=== PATIENT | male | born 1940 | race African-American/Black ===

== ENCOUNTER 2018-07-23 17:37 | Inpatient (IN) | payer MEDICARE, MEDICAID ==
[~2018-07-23] VITALS: Ht 172.7 cm; Wt 154.2 kg
[~2018-07-23 17:37] MED LIST: CHOL100046 PO; DILT240C52 PO; DUONEB3 ML INH; METF-414 PO; ROSU5TAB PO
[2018-07-23] MEDS ORDERED: METHYLPREDNISOLONE 4MG TABLET PO ONE (19:00)
[2018-07-23] MEDS ORDERED: IPRATROPIUM/ALBUTEROL 0.5-3(2.5)MG/3ML NEB HHN ONE (19:00)
[2018-07-23 19:27] LABS: BASOPHILS % 0.6 % (0.0-2.0); CHLORIDE 100 mEq/L (98-107); EOSINOPHILS % 2.3 % (0.0-5.0); HEMATOCRIT. 35.4 % (42.0-52.0); HEMOGLOBIN. 11.7 g/dL (14.0-18.0); LYMPHOCYTES % 21.1 % (20.0-50.0); MEAN CORPUSCULAR HEMOGLOBIN 27.8 pg (28.0-32.0); MEAN CORPUSCULAR VOLUME 84.2 fL (80.0-94.0); MEAN PLATELET VOLUME 7.7 fl (7.4-10.4); PLATELET 269 x1000/uL (130-400); RED CELL DISTRIBUTION WIDTH 13.7 % (11.6-14.6)
[2018-07-23 19:37] LABS: CLARITY URINE CLEAR (CLEAR); COLOR URINE YELLOW (YELLOW); KETONES URINE NEGATIVE (NEGATIVE); LEUKOCYTE ESTERASE URINE NEGATIVE (NEGATIVE); NITRITE URINE NEGATIVE (NEGATIVE); OCCULT BLOOD URINE 1+ (NEGATIVE); PH URINE 5.5 (4.5-8.0); PROTEIN URINE NEGATIVE (NEGATIVE); SPECIFIC GRAVITY URINE 1.019 (1.005-1.030); UROBILINOGEN URINE 0.2 E.U./dL (0.2-1.0)
[2018-07-23 20:43] LABS: METHADONE URINE SCREEN NEGATIVE (NEGATIVE)
[2018-07-23 20:44] LABS: *AMPHETAMINES SCREEN URINE NEGATIVE (NEGATIVE); *BARBITURATES SCREEN URINE NEGATIVE (NEGATIVE); *BENZODIAZEPINES SCREEN URINE NEGATIVE (NEGATIVE); *COCAINE SCREEN URINE NEGATIVE (NEGATIVE); CANNABINOID URINE SCREEN NEGATIVE (NEGATIVE); OPIATES URINE SCREEN NEGATIVE (NEGATIVE); PHENCYCLIDINE URINE SCREEN NEGATIVE (NEGATIVE)
[2018-07-23 22:07] LABS: BG BASE EXCESS 3.3 mmol/L (-2.0-2.0); BG CARBOXYHEMOGLOBIN 0.7 % (0.5-1.5); BG DEOXYHEMOGLOBIN 5.8 % (0.0-5.0); BG FRACTION INSPIRED OXYGEN 21; BG HCO3 ACT 28.2 mmol/L (22.0-26.0); BG METHEMOGLOBIN 0.2 % (0.0-1.5); BG OXYGEN SATURATION 94.1 % (92.0-98.5); BG OXYHEMOGLOBIN 93.3 % (94.0-97.0); BG PCO2 43.8 mmHg (35.0-45.0); BG PH 7.426 (7.350-7.450); BG PO2 71.2 mmHg (75.0-100.0); BG SAMPLE SITE RIGHT RADIAL; BG VENT MODE ROOM AIR
[2018-07-24] VITALS (13 sets, daily range): BP systolic 132–161; BP diastolic 53–90
[2018-07-24] MEDS ORDERED: METHYLPREDNISOLONE SOD SUCC 40 MG/ML VIAL IV ONE
[2018-07-24] MEDS ORDERED: POTASSIUM CHLORIDE 20MEQ TABLET SR PO SCH (01:30)
[2018-07-24] MEDS ORDERED: DEXTROSE 50% WATER 50ML SYRINGE IV PRN (01:30)
[2018-07-24] MEDS ORDERED: LEVOFLOXACIN 500MG PREMIX 100 ML IV SCH ×2 (01:30→03:00)
[2018-07-24] MEDS ORDERED: CLONIDINE 0.1MG TABLET PO PRN (01:30)
[2018-07-24] MEDS ORDERED: ONDANSETRON HCL 4MG/2ML INJ IV PRN (01:30)
[2018-07-24] MEDS ORDERED: SODIUM CHLORIDE 0.45% 1,000 ML IV SCH (01:30)
[2018-07-24] MEDS ORDERED: ENOXAPARIN 40MG/0.4ML SYR SUBCUT SCH (01:30)
[2018-07-24] MEDS ORDERED: DOCUSATE SODIUM 100MG CAPSULE PO PRN (01:30)
[2018-07-24] MEDS ORDERED: MAX MT (01:45)
[2018-07-24] MEDS ORDERED: DILT-2 MT (01:45)
[2018-07-24] MEDS ORDERED: LOSA100T14 MT (01:45)
[2018-07-24] MEDS ORDERED: ASPI-1159 MT (01:45)
[2018-07-24] MEDS: METHYLPREDNISOLONE SOD SUCC 40 MG/ML VIAL IV SCH ×3 (02:01→17:35)
[2018-07-24] MEDS: IPRATROPIUM/ALBUTEROL 0.5-3(2.5)MG/3ML NEB INH SCH ×5 (04:05→21:57)
[2018-07-24] MEDS: BLOOD SUGAR DIAGNOSTIC STRIP TEST SCH ×4 (07:00→20:53)
[2018-07-24] MEDS: INSULIN LISPRO 100 UNITS/ML SUBCUT SCH ×4 (07:20→20:53)
[2018-07-24] MEDS: ENOXAPARIN 40MG/0.4ML SYR SUBCUT SCH ×2 (09:36→21:06)
[2018-07-24 11:25] LABS: CHLORIDE 100 mEq/L (98-107)
[2018-07-24 11:32] LABS: LDL CHOLESTEROL 96 mg/dL (5-100)
[2018-07-24 11:33] LABS: HDL CHOLESTEROL 52 mg/dL (40-59)
[2018-07-24 11:37] LABS: HEMOGLOBIN 11.6 g/dL (14.0-18.0); MEAN CORPUSCULAR HEMOGLOBIN 28.4 pg (28.0-32.0); MEAN CORPUSCULAR VOLUME 85.6 fL (80.0-94.0); PLATELET 266 x1000/uL (130-400); RED BLOOD CELL COUNT 4.09 mill/uL (4.7-6.1); RED CELL DISTRIBUTION WIDTH 13.6 % (11.6-14.6)
[2018-07-24] MEDS: ACETAMINOPHEN 325MG TABLET PO PRN (15:53)
[2018-07-24] MEDS: AMLODIPINE 5MG TABLET PO SCH (17:35)
[2018-07-24] MEDS ORDERED: INFLUENZA VIRUS VACCINE(AFLURIA) 0.5ML SYR IM ONE (19:30)
[2018-07-25] VITALS (11 sets, daily range): BP systolic 102–159; BP diastolic 41–90
[2018-07-25] MEDS: IPRATROPIUM/ALBUTEROL 0.5-3(2.5)MG/3ML NEB INH SCH ×5 (01:08→16:45)
[2018-07-25] MEDS: METHYLPREDNISOLONE SOD SUCC 40 MG/ML VIAL IV SCH ×3 (02:00→18:00)
[2018-07-25] MEDS: ACETAMINOPHEN 325MG TABLET PO PRN (03:05)
[2018-07-25] MEDS ORDERED: LEVOFLOXACIN 500MG PREMIX 100 ML IV SCH (06:00)
[2018-07-25] MEDS: BLOOD SUGAR DIAGNOSTIC STRIP TEST SCH ×3 (06:43→17:27)
[2018-07-25] MEDS: INSULIN LISPRO 100 UNITS/ML SUBCUT SCH ×3 (07:20→17:20)
[2018-07-25] MEDS: AMLODIPINE 5MG TABLET PO SCH (08:15)
[2018-07-25] MEDS: ENOXAPARIN 40MG/0.4ML SYR SUBCUT SCH (08:16)
[2018-07-25 08:41] LABS: CHLORIDE 99 mEq/L (98-107)
[2018-07-25 08:51] LABS: D-DIMER 0.34 mg/L FEU (<0.50)
[2018-07-25 09:34] LABS: HEMATOCRIT 32.1 % (42.0-52.0); HEMOGLOBIN 10.6 g/dL (14.0-18.0); MEAN CORPUSCULAR HEMOGLOBIN 27.8 pg (28.0-32.0); MEAN CORPUSCULAR VOLUME 84.2 fL (80.0-94.0); PLATELET 276 x1000/uL (130-400); RED BLOOD CELL COUNT 3.81 mill/uL (4.7-6.1); RED CELL DISTRIBUTION WIDTH 13.6 % (11.6-14.6)
== END 2018-07-25 18:54 | disposition home or self-care (01) | DRG 291 ==
LOC: ER 17:37 → 3WST 21:06 → EDBEDREQ 21:12 → EDBEDREQTM 21:12 → ENRESERV 22:34
PROVIDERS: ADMIT Ophthalmology; ATTEND Ophthalmology
DX: I11.0 Hypertensive heart disease with heart failure (principal); J18.9 Pneumonia, unspecified organism; J96.20 Acute and chronic respiratory failure, unspecified whether with hypoxia or hypercapnia; J44.1 Chronic obstructive pulmonary disease with (acute) exacerbation; D68.59 Other primary thrombophilia; E66.2 Morbid (severe) obesity with alveolar hypoventilation; Z68.43 Body mass index [BMI] 50.0-59.9, adult; J44.0 Chronic obstructive pulmonary disease with (acute) lower respiratory infection; R65.10 Systemic inflammatory response syndrome (SIRS) of non-infectious origin without acute organ dysfunction; I50.43 Acute on chronic combined systolic (congestive) and diastolic (congestive) heart failure; D64.9 Anemia, unspecified; Z79.84 Long term (current) use of oral hypoglycemic drugs; Z79.899 Other long term (current) drug therapy; Z82.5 Family history of asthma and other chronic lower respiratory diseases; Z85.46 Personal history of malignant neoplasm of prostate; Z90.49 Acquired absence of other specified parts of digestive tract; Z91.14 Patient's other noncompliance with medication regimen; Z92.3 Personal history of irradiation; R07.89 Other chest pain; Z91.013 Allergy to seafood; Z79.82 Long term (current) use of aspirin
CPT/HCPCS: 36415; 36600; 71045; 74018; 80048; 80061; 80305; 82375; 82805; 82962; 83036; 83880; 84153; 84439; 84443; 84484; 85027; 85379; 87070; 90686; 93005; 93306; 93970; 94640; 97162; 99285; J1650; J1815; J1956; J2920; J7050; J7509; J7620; G0103

== ENCOUNTER 2019-05-03 03:26 | Inpatient (IN) | payer MEDICARE, MEDICAID ==
[~2019-05-03] VITALS: Ht 172.7 cm; Wt 162.9 kg
[2019-05-03] VITALS (8 sets, daily range): BP systolic 125–161; BP diastolic 58–83
[~2019-05-03 03:26] MED LIST changes: +ASPI-1497 MT; +DILT240C96 MT; +LOSA100T32 MT; +MAX MT
[2019-05-03] MEDS ORDERED: METHYLPREDNISOLONE SOD SUCC 125 MG/2 ML VIAL IV STA (03:37)
[2019-05-03] MEDS ORDERED: IPRATROPIUM BROMIDE (0.02%) 0.5MG/2.5ML NEB HHN STA (03:37)
[2019-05-03] MEDS ORDERED: ONDANSETRON HCL 4MG/2ML INJ IV STA (03:37)
[2019-05-03] MEDS ORDERED: MAGNESIUM 2 G PREMIX 50 ML IV ONE (03:45)
[2019-05-03 04:08] LABS: BASOPHILS % 0.5 % (0.0-2.0); EOSINOPHILS % 8.7 % (0.0-5.0); HEMATOCRIT. 34.3 % (42.0-52.0); HEMOGLOBIN. 11.4 g/dL (14.0-18.0); LYMPHOCYTES % 21.5 % (20.0-50.0); MEAN CORPUSCULAR HEMOGLOBIN 27.7 pg (28.0-32.0); MEAN CORPUSCULAR VOLUME 83.6 fL (80.0-94.0); MEAN PLATELET VOLUME 7.8 fl (7.4-10.4); MONOCYTES % 7.3 % (2.0-8.0); PLATELET 244 x1000/uL (130-400); RED BLOOD CELL COUNT 4.11 mill/uL (4.7-6.1); RED CELL DISTRIBUTION WIDTH 14.3 % (11.6-14.6)
[2019-05-03] MEDS: ALBUTEROL (0.083%) 2.5MG/3ML NEB HHN SCH ×2 (04:10→05:13)
[2019-05-03 04:16] LABS: CHLORIDE 98 mEq/L (98-107)
[2019-05-03 04:48] LABS: BG BASE EXCESS 1.2 mmol/L (-2.0-2.0); BG BILEVEL POS AIRWAY PRESSURE 18/5; BG CARBOXYHEMOGLOBIN 0.2 % (0.5-1.5); BG DEOXYHEMOGLOBIN 0.8 % (0.0-5.0); BG FRACTION INSPIRED OXYGEN 50; BG METHEMOGLOBIN 0.2 % (0.0-1.5); BG OXYGEN SATURATION 99.2 % (92.0-98.5); BG OXYHEMOGLOBIN 98.8 % (94.0-97.0); BG PCO2 42.1 mmHg (35.0-45.0); BG PH 7.409 (7.350-7.450); BG PO2 256.1 mmHg (75.0-100.0); BG SAMPLE SITE RIGHT RADIAL; BG TOTAL HEMOGLOBIN 12.4 g/dL (12.0-18.0); BG VENT MODE MASK - BIPAP; BG VENT RATE 16 set
[2019-05-03] MEDS ORDERED: IPRATROPIUM/ALBUTEROL 0.5-3(2.5)MG/3ML NEB HHN ONE (09:45)
[2019-05-03] MEDS ORDERED: DEXTROSE 50% WATER 50ML SYRINGE IV PRN (10:00)
[2019-05-03] MEDS ORDERED: IPRATROPIUM/ALBUTEROL 0.5-3(2.5)MG/3ML NEB HHN SCH (10:00)
[2019-05-03] MEDS: ENOXAPARIN 40MG/0.4ML SYR SUBCUT SCH ×2 (11:26→20:57)
[2019-05-03] MEDS: BLOOD SUGAR DIAGNOSTIC STRIP TEST SCH ×3 (11:29→20:41)
[2019-05-03] MEDS: INSULIN LISPRO 100 UNITS/ML SUBCUT SCH ×3 (12:22→20:57)
[2019-05-03] MEDS: IPRATROPIUM/ALBUTEROL 0.5-3(2.5)MG/3ML NEB HHN PRN (12:42)
[2019-05-03] MEDS: METHYLPREDNISOLONE SOD SUCC 125 MG/2 ML VIAL IV SCH ×2 (14:06→21:02)
[2019-05-03] MEDS: IPRATROPIUM/ALBUTEROL 0.5-3(2.5)MG/3ML NEB HHN SCH ×2 (15:36→20:01)
[2019-05-03] MEDS ORDERED: LORAZEPAM 2MG/ML CPJ IV PRN (16:45)
[2019-05-03] MEDS ORDERED: MORPHINE SULFATE 2 MG/ML CPJ (NOT FOR IM USE) IV PRN (16:45)
[2019-05-03] MEDS ORDERED: LACTULOSE 20G/30ML UDC PO PRN (16:45)
[2019-05-03] MEDS ORDERED: DIPHENHYDRAMINE 50MG/ML VIAL IV PRN (16:45)
[2019-05-03 17:42] LABS: BG BASE EXCESS 4.6 mmol/L (-2.0-2.0); BG CARBOXYHEMOGLOBIN 0.3 % (0.5-1.5); BG DEOXYHEMOGLOBIN 12.3 % (0.0-5.0); BG FRACTION INSPIRED OXYGEN 21; BG HCO3 ACT 30.8 mmol/L (22.0-26.0); BG METHEMOGLOBIN 0.2 % (0.0-1.5); BG OXYGEN SATURATION 87.6 % (92.0-98.5); BG OXYHEMOGLOBIN 87.2 % (94.0-97.0); BG PCO2 52.9 mmHg (35.0-45.0); BG PH 7.383 (7.350-7.450); BG PO2 53.1 mmHg (75.0-100.0); BG SAMPLE SITE RIGHT RADIAL; BG TOTAL HEMOGLOBIN 12.1 g/dL (12.0-18.0); BG VENT MODE ROOM AIR
[2019-05-03] MEDS: BUDESONIDE 0.5MG/2ML NEB HHN SCH (20:01)
[2019-05-03] MEDS: FAMOTIDINE 20MG TABLET PO SCH (20:57)
[2019-05-04] VITALS (15 sets, daily range): BP systolic 103–179; BP diastolic 52–93
[2019-05-04] MEDS: IPRATROPIUM/ALBUTEROL 0.5-3(2.5)MG/3ML NEB HHN PRN (00:21)
[2019-05-04] MEDS: IPRATROPIUM/ALBUTEROL 0.5-3(2.5)MG/3ML NEB HHN SCH ×5 (04:27→19:42)
[2019-05-04] MEDS: ACETAMINOPHEN 325MG TABLET PO PRN (05:00)
[2019-05-04] MEDS: METHYLPREDNISOLONE SOD SUCC 125 MG/2 ML VIAL IV SCH (05:02)
[2019-05-04] MEDS: BLOOD SUGAR DIAGNOSTIC STRIP TEST SCH ×4 (06:30→21:13)
[2019-05-04 06:42] LABS: BASOPHILS % 0.1 % (0.0-2.0); HEMATOCRIT. 32.8 % (42.0-52.0); HEMOGLOBIN. 10.9 g/dL (14.0-18.0); MEAN CORPUSCULAR HEMOGLOBIN 27.7 pg (28.0-32.0); MEAN CORPUSCULAR VOLUME 83.6 fL (80.0-94.0); MEAN PLATELET VOLUME 8.2 fl (7.4-10.4); MONOCYTES % 2.5 % (2.0-8.0); NEUTROPHILS % 88.4 % (40.0-76.0); PLATELET 233 x1000/uL (130-400); RED BLOOD CELL COUNT 3.93 mill/uL (4.7-6.1); RED CELL DISTRIBUTION WIDTH 14.1 % (11.6-14.6)
[2019-05-04] MEDS ORDERED: PANTOPRAZOLE 40MG DR TABLET PO SCH (06:50)
[2019-05-04] MEDS: INSULIN LISPRO 100 UNITS/ML SUBCUT SCH ×4 (07:58→21:31)
[2019-05-04] MEDS: ENOXAPARIN 40MG/0.4ML SYR SUBCUT SCH ×2 (08:00→21:32)
[2019-05-04] MEDS: BUDESONIDE 0.5MG/2ML NEB HHN SCH ×2 (08:54→19:42)
[2019-05-04] MEDS ORDERED: ENOXAPARIN 40MG/0.4ML SYR SUBCUT SCH (11:00)
[2019-05-04] MEDS: METHYLPREDNISOLONE SOD SUCC 40 MG/ML VIAL IV SCH ×2 (14:30→21:32)
[2019-05-04] MEDS: FAMOTIDINE 20MG TABLET PO SCH (21:32)
[2019-05-05] VITALS (12 sets, daily range): BP systolic 128–180; BP diastolic 60–98
[2019-05-05 00:06] LABS: CLARITY URINE CLEAR (CLEAR); COLOR URINE YELLOW (YELLOW); KETONES URINE TRACE (NEGATIVE); LEUKOCYTE ESTERASE URINE NEGATIVE (NEGATIVE); NITRITE URINE NEGATIVE (NEGATIVE); OCCULT BLOOD URINE NEGATIVE (NEGATIVE); PROTEIN URINE NEGATIVE (NEGATIVE); SPECIFIC GRAVITY URINE 1.023 (1.005-1.030); UROBILINOGEN URINE 0.2 E.U./dL (0.2-1.0)
[2019-05-05] MEDS: IPRATROPIUM/ALBUTEROL 0.5-3(2.5)MG/3ML NEB HHN SCH ×6 (00:11→20:52)
[2019-05-05 00:19] LABS: *AMPHETAMINES SCREEN URINE NEGATIVE (NEGATIVE); *BARBITURATES SCREEN URINE NEGATIVE (NEGATIVE); *BENZODIAZEPINES SCREEN URINE NEGATIVE (NEGATIVE); *COCAINE SCREEN URINE NEGATIVE (NEGATIVE); METHADONE URINE SCREEN NEGATIVE (NEGATIVE); OPIATES URINE SCREEN NEGATIVE (NEGATIVE)
[2019-05-05 00:20] LABS: CANNABINOID URINE SCREEN NEGATIVE (NEGATIVE); PHENCYCLIDINE URINE SCREEN NEGATIVE (NEGATIVE)
[2019-05-05] MEDS: METHYLPREDNISOLONE SOD SUCC 40 MG/ML VIAL IV SCH ×3 (05:51→21:50)
[2019-05-05] MEDS: BLOOD SUGAR DIAGNOSTIC STRIP TEST SCH ×4 (06:38→21:30)
[2019-05-05 07:13] LABS: HEMATOCRIT. 32.4 % (42.0-52.0); HEMOGLOBIN. 10.6 g/dL (14.0-18.0); MEAN CORPUSCULAR HEMOGLOBIN 27.6 pg (28.0-32.0); MEAN CORPUSCULAR VOLUME 84.4 fL (80.0-94.0); MEAN PLATELET VOLUME 8.1 fl (7.4-10.4); PLATELET 247 x1000/uL (130-400); RED BLOOD CELL COUNT 3.84 mill/uL (4.7-6.1); RED CELL DISTRIBUTION WIDTH 14.2 % (11.6-14.6)
[2019-05-05] MEDS: BUDESONIDE 0.5MG/2ML NEB HHN SCH ×2 (07:42→20:52)
[2019-05-05] MEDS: INSULIN LISPRO 100 UNITS/ML SUBCUT SCH ×4 (07:44→21:51)
[2019-05-05] MEDS: ENOXAPARIN 40MG/0.4ML SYR SUBCUT SCH ×2 (07:46→21:50)
[2019-05-05] MEDS ORDERED: CEFEPIME HCL 1000MG/VIAL INJ IM SCH (09:30)
[2019-05-05 11:40] LABS: BG BASE EXCESS 3.1 mmol/L (-2.0-2.0); BG CARBOXYHEMOGLOBIN 0.1 % (0.5-1.5); BG DEOXYHEMOGLOBIN 8.9 % (0.0-5.0); BG FRACTION INSPIRED OXYGEN 21; BG HCO3 ACT 28.9 mmol/L (22.0-26.0); BG OXYGEN SATURATION 91.1 % (92.0-98.5); BG PCO2 49.6 mmHg (35.0-45.0); BG PH 7.383 (7.350-7.450); BG PO2 60.1 mmHg (75.0-100.0); BG SAMPLE SITE RIGHT RADIAL; BG TOTAL HEMOGLOBIN 11.9 g/dL (12.0-18.0); BG VENT MODE ROOM AIR
[2019-05-05] MEDS: CEFEPIME 1,000 MG in DEXTROSE 5% WATER 50 ML IV SCH ×2 (12:15→22:05)
[2019-05-05] MEDS ORDERED: SIMETHICONE 80MG TABLET CHEW PO PRN (12:45)
[2019-05-05 13:48] LABS: PLATELET ESTIMATE NORMAL
[2019-05-05] MEDS ORDERED: HYDROCODONE/ACETAMINOPHEN 5/325MG TABLET PO PRN (15:30)
[2019-05-05] MEDS: ACETYLCYSTEINE 100MG/ML 10% VIAL 4ML INH SCH (16:29)
[2019-05-05] MEDS: FAMOTIDINE 20MG TABLET PO SCH (21:49)
[2019-05-06] MEDS: ACETYLCYSTEINE 100MG/ML 10% VIAL 4ML INH SCH ×3 (00:10→16:04)
[2019-05-06] MEDS: IPRATROPIUM/ALBUTEROL 0.5-3(2.5)MG/3ML NEB HHN SCH ×6 (00:11→20:17)
[2019-05-06 00:22] VITALS: BP 138/68
[2019-05-06] MEDS: METHYLPREDNISOLONE SOD SUCC 40 MG/ML VIAL IV SCH ×3 (06:27→21:54)
[2019-05-06] MEDS: BLOOD SUGAR DIAGNOSTIC STRIP TEST SCH ×4 (06:28→21:54)
[2019-05-06] MEDS: INSULIN LISPRO 100 UNITS/ML SUBCUT SCH ×4 (06:31→21:00)
[2019-05-06] MEDS: BUDESONIDE 0.5MG/2ML NEB HHN SCH ×2 (07:55→22:30)
[2019-05-06 08:00] VITALS: BP 156/91
[2019-05-06] MEDS: CEFEPIME 1,000 MG in DEXTROSE 5% WATER 50 ML IV SCH ×2 (09:39→21:54)
[2019-05-06] MEDS: ENOXAPARIN 40MG/0.4ML SYR SUBCUT SCH ×2 (09:39→21:54)
[2019-05-06 12:00] VITALS: BP 136/74
[2019-05-06 12:17] LABS: BG CARBOXYHEMOGLOBIN 0.3 % (0.5-1.5); BG DEOXYHEMOGLOBIN 10.2 % (0.0-5.0); BG FRACTION INSPIRED OXYGEN 28; BG HCO3 ACT 29.2 mmol/L (22.0-26.0); BG METHEMOGLOBIN 0.2 % (0.0-1.5); BG OXYGEN SATURATION 89.7 % (92.0-98.5); BG OXYHEMOGLOBIN 89.3 % (94.0-97.0); BG PCO2 51.6 mmHg (35.0-45.0); BG PH 7.371 (7.350-7.450); BG PO2 59.7 mmHg (75.0-100.0); BG SAMPLE SITE RIGHT RADIAL; BG TOTAL HEMOGLOBIN 12.6 g/dL (12.0-18.0); BG VENT MODE NASAL CANNULA
[2019-05-06 16:00] VITALS: BP 170/73
[2019-05-06 16:47] LABS: HEMATOCRIT. 35.4 % (42.0-52.0); HEMOGLOBIN. 11.6 g/dL (14.0-18.0); MEAN CORPUSCULAR HEMOGLOBIN 27.6 pg (28.0-32.0); MEAN CORPUSCULAR VOLUME 84.5 fL (80.0-94.0); MEAN PLATELET VOLUME 8.1 fl (7.4-10.4); PLATELET 264 x1000/uL (130-400); RED BLOOD CELL COUNT 4.19 mill/uL (4.7-6.1); RED CELL DISTRIBUTION WIDTH 14.6 % (11.6-14.6)
[2019-05-06 16:51] LABS: CHLORIDE 98 mEq/L (98-107)
[2019-05-06 20:00] VITALS: BP 166/95
[2019-05-06 20:42] LABS: PLATELET ESTIMATE NORMAL
[2019-05-06] MEDS: FAMOTIDINE 20MG TABLET PO SCH (21:54)
[2019-05-07] VITALS (7 sets, daily range): BP systolic 139–203; BP diastolic 46–99
[2019-05-07] MEDS: IPRATROPIUM/ALBUTEROL 0.5-3(2.5)MG/3ML NEB HHN SCH ×6 (01:41→20:03)
[2019-05-07] MEDS: METHYLPREDNISOLONE SOD SUCC 40 MG/ML VIAL IV SCH ×2 (05:43→14:13)
[2019-05-07] MEDS: BLOOD SUGAR DIAGNOSTIC STRIP TEST SCH ×4 (05:53→21:25)
[2019-05-07] MEDS: INSULIN LISPRO 100 UNITS/ML SUBCUT SCH ×4 (05:54→21:34)
[2019-05-07 07:24] LABS: HEMOGLOBIN. 10.9 g/dL (14.0-18.0); MEAN CORPUSCULAR HEMOGLOBIN 27.7 pg (28.0-32.0); MEAN CORPUSCULAR VOLUME 83.5 fL (80.0-94.0); MEAN PLATELET VOLUME 8.4 fl (7.4-10.4); PLATELET 257 x1000/uL (130-400); RED BLOOD CELL COUNT 3.95 mill/uL (4.7-6.1); RED CELL DISTRIBUTION WIDTH 13.9 % (11.6-14.6)
[2019-05-07 07:39] LABS: CHLORIDE 98 mEq/L (98-107)
[2019-05-07] MEDS: ENOXAPARIN 40MG/0.4ML SYR SUBCUT SCH ×2 (09:32→21:35)
[2019-05-07] MEDS: CEFEPIME 1,000 MG in DEXTROSE 5% WATER 50 ML IV SCH ×2 (09:32→23:54)
[2019-05-07 09:41] LABS: PLATELET ESTIMATE NORMAL
[2019-05-07] MEDS: HYDRALAZINE 20MG/ML VIAL IV PRN (12:30)
[2019-05-07] MEDS: FAMOTIDINE 20MG TABLET PO SCH (21:35)
[2019-05-08] VITALS (13 sets, daily range): BP systolic 169–220; BP diastolic 66–125
[2019-05-08] MEDS: IPRATROPIUM/ALBUTEROL 0.5-3(2.5)MG/3ML NEB HHN SCH ×6 (00:16→20:31)
[2019-05-08 01:16] LABS: BG BASE EXCESS 2.7 mmol/L (-2.0-2.0); BG BILEVEL POS AIRWAY PRESSURE 15/5; BG CARBOXYHEMOGLOBIN 0.4 % (0.5-1.5); BG DEOXYHEMOGLOBIN 6.8 % (0.0-5.0); BG FRACTION INSPIRED OXYGEN 30; BG HCO3 ACT 28.5 mmol/L (22.0-26.0); BG OXYGEN SATURATION 93.2 % (92.0-98.5); BG OXYHEMOGLOBIN 92.8 % (94.0-97.0); BG PCO2 48.2 mmHg (35.0-45.0); BG PH 7.389 (7.350-7.450); BG PO2 63.7 mmHg (75.0-100.0); BG SAMPLE SITE RIGHT RADIAL; BG TOTAL HEMOGLOBIN 13.3 g/dL (12.0-18.0); BG VENT MODE MASK - BIPAP
[2019-05-08] MEDS ORDERED: METHYLPREDNISOLONE SOD SUCC 40 MG/ML VIAL IV SCH ×2 (01:30→02:30)
[2019-05-08] MEDS: HYDRALAZINE 20MG/ML VIAL IV PRN ×3 (03:30→17:51)
[2019-05-08] MEDS: METHYLPREDNISOLONE SOD SUCC 40 MG/ML VIAL IV SCH ×3 (03:51→17:44)
[2019-05-08] MEDS: BLOOD SUGAR DIAGNOSTIC STRIP TEST SCH ×4 (07:30→20:52)
[2019-05-08] MEDS: INSULIN LISPRO 100 UNITS/ML SUBCUT SCH ×4 (08:00→20:52)
[2019-05-08] MEDS: ENOXAPARIN 40MG/0.4ML SYR SUBCUT SCH ×2 (09:41→20:53)
[2019-05-08 09:46] LABS: HEMATOCRIT. 38.7 % (42.0-52.0); HEMOGLOBIN. 12.6 g/dL (14.0-18.0); MEAN CORPUSCULAR HEMOGLOBIN 27.8 pg (28.0-32.0); MEAN CORPUSCULAR VOLUME 85.4 fL (80.0-94.0); MEAN PLATELET VOLUME 8.5 fl (7.4-10.4); PLATELET 241 x1000/uL (130-400); RED BLOOD CELL COUNT 4.53 mill/uL (4.7-6.1); RED CELL DISTRIBUTION WIDTH 14.4 % (11.6-14.6)
[2019-05-08 09:55] LABS: CHLORIDE 101 mEq/L (98-107)
[2019-05-08] MEDS: CEFEPIME 1,000 MG in DEXTROSE 5% WATER 50 ML IV SCH ×2 (11:23→22:30)
[2019-05-08 12:07] LABS: PLATELET ESTIMATE NORMAL
[2019-05-08] MEDS: SODIUM CHLORIDE 0.9% 1,000 ML IV SCH (12:37)
[2019-05-08 17:58] LABS: BG BASE EXCESS 2.9 mmol/L (-2.0-2.0); BG BILEVEL POS AIRWAY PRESSURE 15/5; BG CARBOXYHEMOGLOBIN 0.2 % (0.5-1.5); BG DEOXYHEMOGLOBIN 2.4 % (0.0-5.0); BG FRACTION INSPIRED OXYGEN 35; BG HCO3 ACT 27.6 mmol/L (22.0-26.0); BG METHEMOGLOBIN 0.1 % (0.0-1.5); BG OXYGEN SATURATION 97.6 % (92.0-98.5); BG OXYHEMOGLOBIN 97.3 % (94.0-97.0); BG PCO2 42.8 mmHg (35.0-45.0); BG PH 7.428 (7.350-7.450); BG PO2 103.5 mmHg (75.0-100.0); BG SAMPLE SITE RIGHT RADIAL; BG TOTAL HEMOGLOBIN 13.4 g/dL (12.0-18.0); BG VENT MODE MASK - BIPAP
[2019-05-08] MEDS ORDERED: VANCOMYCIN 2,000 MG in DEXT 5% WATER 500 ML IV SCH ×2 (18:00→20:00)
[2019-05-08] MEDS: BUDESONIDE 0.5MG/2ML NEB HHN SCH (20:32)
[2019-05-08] MEDS: FAMOTIDINE 20MG TABLET PO SCH (20:52)
[2019-05-08] MEDS ORDERED: MEDICATION NOT ON FORMULARY EA (Rosuvastatin Calcium (Crestor) 1 TAB) PO SCH (23:45)
[2019-05-09] VITALS (12 sets, daily range): BP systolic 150–196; BP diastolic 66–101
[2019-05-09] MEDS: IPRATROPIUM/ALBUTEROL 0.5-3(2.5)MG/3ML NEB HHN SCH ×6 (00:11→20:36)
[2019-05-09] MEDS: METHYLPREDNISOLONE SOD SUCC 40 MG/ML VIAL IV SCH ×4 (00:23→17:05)
[2019-05-09] MEDS: LOSARTAN POTASSIUM 100 MG TABLET PO SCH ×2 (00:24→09:15)
[2019-05-09] MEDS: ACETAMINOPHEN 325MG TABLET PO PRN (00:24)
[2019-05-09] MEDS: HYDRALAZINE 20MG/ML VIAL IV PRN ×2 (05:41→11:26)
[2019-05-09 07:32] LABS: HEMATOCRIT. 35.5 % (42.0-52.0); HEMOGLOBIN. 11.7 g/dL (14.0-18.0); MEAN CORPUSCULAR HEMOGLOBIN 27.8 pg (28.0-32.0); MEAN CORPUSCULAR VOLUME 84.6 fL (80.0-94.0); MEAN PLATELET VOLUME 8.2 fl (7.4-10.4); PLATELET 250 x1000/uL (130-400); RED CELL DISTRIBUTION WIDTH 14.4 % (11.6-14.6)
[2019-05-09] MEDS: BUDESONIDE 0.5MG/2ML NEB HHN SCH ×2 (07:52→20:38)
[2019-05-09] MEDS: INSULIN LISPRO 100 UNITS/ML SUBCUT SCH ×4 (08:00→21:00)
[2019-05-09] MEDS: BLOOD SUGAR DIAGNOSTIC STRIP TEST SCH ×4 (08:26→21:29)
[2019-05-09 08:33] LABS: CHLORIDE 99 mEq/L (98-107)
[2019-05-09] MEDS: SODIUM CHLORIDE 0.9% 1,000 ML IV SCH (09:15)
[2019-05-09] MEDS: ENOXAPARIN 40MG/0.4ML SYR SUBCUT SCH ×2 (09:15→21:36)
[2019-05-09] MEDS: VANCOMYCIN 1 G PREMIX 200 ML IV SCH ×2 (09:58→20:00)
[2019-05-09] MEDS: CEFEPIME 1,000 MG in DEXTROSE 5% WATER 50 ML IV SCH ×2 (11:26→22:29)
[2019-05-09] MEDS ORDERED: OMEP40CA12 MT (15:05)
[2019-05-09] MEDS ORDERED: GABA-531 MT (15:05)
[2019-05-09] MEDS ORDERED: BICA50TA7 MT (15:05)
[2019-05-09 16:11] LABS: PLATELET ESTIMATE NORMAL
[2019-05-09] MEDS: GABAPENTIN 300MG CAPSULE PO SCH (17:00)
[2019-05-09] MEDS: DILTIAZEM HCL 120MG CAPSULE CD 24HR PO SCH (18:32)
[2019-05-09] MEDS: BICALUTAMIDE 50 MG TABLET PO SCH (18:33)
[2019-05-09] MEDS ORDERED: ATORVASTATIN CALCIUM 20MG TABLET PO SCH (21:00)
[2019-05-10] VITALS (12 sets, daily range): BP systolic 121–160; BP diastolic 53–95
[2019-05-10] MEDS: IPRATROPIUM/ALBUTEROL 0.5-3(2.5)MG/3ML NEB HHN SCH ×6 (00:35→20:55)
[2019-05-10] MEDS: GABAPENTIN 300MG CAPSULE PO SCH ×3 (00:37→17:17)
[2019-05-10] MEDS: METHYLPREDNISOLONE SOD SUCC 40 MG/ML VIAL IV SCH ×3 (00:37→12:03)
[2019-05-10] MEDS: SODIUM CHLORIDE 0.9% 1,000 ML IV SCH (04:05)
[2019-05-10] MEDS ORDERED: OMEPRAZOLE 20MG CAPSULE EXTENDED RELEASE PO SCH (07:30)
[2019-05-10] MEDS: INSULIN LISPRO 100 UNITS/ML SUBCUT SCH ×3 (08:00→17:18)
[2019-05-10] MEDS: BLOOD SUGAR DIAGNOSTIC STRIP TEST SCH ×3 (08:04→16:51)
[2019-05-10] MEDS: BUDESONIDE 0.5MG/2ML NEB HHN SCH (08:08)
[2019-05-10] MEDS: BICALUTAMIDE 50 MG TABLET PO SCH (08:36)
[2019-05-10] MEDS: DILTIAZEM HCL 120MG CAPSULE CD 24HR PO SCH (08:36)
[2019-05-10] MEDS: LOSARTAN POTASSIUM 100 MG TABLET PO SCH (08:36)
[2019-05-10] MEDS: ENOXAPARIN 40MG/0.4ML SYR SUBCUT SCH (08:37)
[2019-05-10] MEDS: VANCOMYCIN 1 G PREMIX 200 ML IV SCH (08:37)
[2019-05-10] MEDS: CEFEPIME 1,000 MG in DEXTROSE 5% WATER 50 ML IV SCH (10:40)
[2019-05-10 12:09] LABS: HEMATOCRIT. 35.5 % (42.0-52.0); HEMOGLOBIN. 11.6 g/dL (14.0-18.0); MEAN CORPUSCULAR HEMOGLOBIN 27.4 pg (28.0-32.0); MEAN CORPUSCULAR VOLUME 83.8 fL (80.0-94.0); PLATELET 237 x1000/uL (130-400); RED BLOOD CELL COUNT 4.23 mill/uL (4.7-6.1); RED CELL DISTRIBUTION WIDTH 14.5 % (11.6-14.6)
[2019-05-10 12:58] LABS: CHLORIDE 100 mEq/L (98-107)
[2019-05-10] MEDS ORDERED: METHYLPREDNISOLONE SOD SUCC 125 MG/2 ML VIAL IV SCH ×2 (17:21→18:00)
[2019-05-10 20:23] LABS: PLATELET ESTIMATE NORMAL
== END 2019-05-10 21:50 | DRG 189 ==
LOC: ER 03:26 → 3WST 05:22 → EDBEDREQSVC 05:24 → EDBEDREQ 05:24 → EDBEDREQTM 05:24 → ENRESERV 07:36 → 8WST 05-06 00:53 → 5EST 05-08 03:20
PROVIDERS: ADMIT Ophthalmology; ATTEND Ophthalmology
PROC: 5A09357 Assistance with Respiratory Ventilation, Less than 24 Consecutive Hours, Continuous Positive Airway Pressure (ICD-10-PCS; principal; 2019-05-03)
PROC: 5A09357 Assistance with Respiratory Ventilation, Less than 24 Consecutive Hours, Continuous Positive Airway Pressure (ICD-10-PCS; 2019-05-04)
PROC: 5A09357 Assistance with Respiratory Ventilation, Less than 24 Consecutive Hours, Continuous Positive Airway Pressure (ICD-10-PCS; 2019-05-05)
PROC: 5A09357 Assistance with Respiratory Ventilation, Less than 24 Consecutive Hours, Continuous Positive Airway Pressure (ICD-10-PCS; 2019-05-06)
PROC: 5A09357 Assistance with Respiratory Ventilation, Less than 24 Consecutive Hours, Continuous Positive Airway Pressure (ICD-10-PCS; 2019-05-07)
PROC: 5A09357 Assistance with Respiratory Ventilation, Less than 24 Consecutive Hours, Continuous Positive Airway Pressure (ICD-10-PCS; 2019-05-08)
PROC: 5A09357 Assistance with Respiratory Ventilation, Less than 24 Consecutive Hours, Continuous Positive Airway Pressure (ICD-10-PCS; 2019-05-09)
DX: J96.21 Acute and chronic respiratory failure with hypoxia (principal); J44.1 Chronic obstructive pulmonary disease with (acute) exacerbation; E66.2 Morbid (severe) obesity with alveolar hypoventilation; Z68.43 Body mass index [BMI] 50.0-59.9, adult; C61 Malignant neoplasm of prostate; I12.9 Hypertensive chronic kidney disease with stage 1 through stage 4 chronic kidney disease, or unspecified chronic kidney disease; E11.65 Type 2 diabetes mellitus with hyperglycemia; D64.9 Anemia, unspecified; E11.22 Type 2 diabetes mellitus with diabetic chronic kidney disease; N18.9 Chronic kidney disease, unspecified; Z79.899 Other long term (current) drug therapy; Z91.013 Allergy to seafood; Z79.82 Long term (current) use of aspirin; Z82.5 Family history of asthma and other chronic lower respiratory diseases; Z85.46 Personal history of malignant neoplasm of prostate
CPT/HCPCS: 36415; 36600; 71045; 71250; 80048; 80053; 80305; 81003; 82375; 82805; 82962; 83036; 83605; 83880; 84145; 84153; 84484; 85025; 87070; 87804; 93005; 93306; 93970; 94640; 94660; 97110; 97162; 99291; C1893; J0360; J0692; J1650; J1815; J2060; J2405; J2920; J2930; J3370; J3475; J7030; J7040; J7060; J7608; J7611; J7620; J7626; G0103

== ENCOUNTER 2019-05-20 12:24 | Inpatient (IN) | payer MEDICARE, MEDICAID ==
[~2019-05-20] VITALS: Ht 172.7 cm; Wt 154.7 kg
[2019-05-20 14:25] LABS: BASOPHILS % 0.3 % (0.0-2.0); EOSINOPHILS % 1.8 % (0.0-5.0); HEMATOCRIT. 33.9 % (42.0-52.0); HEMOGLOBIN. 11.2 g/dL (14.0-18.0); LYMPHOCYTES % 9.6 % (20.0-50.0); MEAN CORPUSCULAR HEMOGLOBIN 27.9 pg (28.0-32.0); MEAN CORPUSCULAR VOLUME 84.1 fL (80.0-94.0); MEAN PLATELET VOLUME 7.9 fl (7.4-10.4); MONOCYTES % 6.8 % (2.0-8.0); NEUTROPHILS % 81.5 % (40.0-76.0); PLATELET 154 x1000/uL (130-400); RED BLOOD CELL COUNT 4.03 mill/uL (4.7-6.1); RED CELL DISTRIBUTION WIDTH 14.8 % (11.6-14.6)
[2019-05-20 14:34] LABS: CHLORIDE 95 mEq/L (98-107)
[2019-05-20] MEDS ORDERED: METHYLPREDNISOLONE SOD SUCC 125 MG/2 ML VIAL IV NR (14:45)
[2019-05-20] MEDS ORDERED: IPRATROPIUM BROMIDE (0.02%) 0.5MG/2.5ML NEB HHN NR (14:45)
[2019-05-20] MEDS ORDERED: ALBUTEROL (0.083%) 2.5MG/3ML NEB HHN NR (14:45)
[2019-05-20] MEDS ORDERED: ACETAMINOPHEN 325MG TABLET PO ONE (17:15)
[2019-05-20 20:04] VITALS: BP 147/79
[2019-05-20] MEDS ORDERED: IPRATROPIUM/ALBUTEROL 0.5-3(2.5)MG/3ML NEB HHN PRN (20:45)
[2019-05-20 21:00] VITALS: BP 147/79
[2019-05-20] MEDS ORDERED: TEMAZEPAM 15MG CAPSULE PO PRN (21:00)
[2019-05-20] MEDS ORDERED: CEFEPIME HCL 1000MG/VIAL INJ IM SCH (22:30)
[2019-05-21] VITALS: BP 130/59
[2019-05-21] MEDS: IPRATROPIUM/ALBUTEROL 0.5-3(2.5)MG/3ML NEB HHN SCH ×7 (00:28→21:03)
[2019-05-21] MEDS: METHYLPREDNISOLONE SOD SUCC 40 MG/ML VIAL IV SCH ×3 (02:28→17:44)
[2019-05-21 04:00] VITALS: BP 141/69
[2019-05-21] MEDS: GABAPENTIN 100MG CAPSULE PO SCH ×3 (06:24→21:42)
[2019-05-21] MEDS: OMEPRAZOLE 20MG CAPSULE EXTENDED RELEASE PO SCH (06:25)
[2019-05-21 07:01] LABS: HEMATOCRIT. 31.4 % (42.0-52.0); HEMOGLOBIN. 10.6 g/dL (14.0-18.0); MEAN CORPUSCULAR HEMOGLOBIN 28.2 pg (28.0-32.0); MEAN CORPUSCULAR VOLUME 83.6 fL (80.0-94.0); MEAN PLATELET VOLUME 8.3 fl (7.4-10.4); PLATELET 149 x1000/uL (130-400); RED BLOOD CELL COUNT 3.76 mill/uL (4.7-6.1); RED CELL DISTRIBUTION WIDTH 14.6 % (11.6-14.6)
[2019-05-21 07:29] LABS: CHLORIDE 96 mEq/L (98-107)
[2019-05-21 08:00] VITALS: BP 141/68
[2019-05-21] MEDS: DILTIAZEM HCL 120MG CAPSULE CD 24HR PO SCH (09:07)
[2019-05-21] MEDS: ENOXAPARIN 40MG/0.4ML SYR SUBCUT SCH ×2 (09:07→21:43)
[2019-05-21] MEDS: BUDESONIDE 0.5MG/2ML NEB HHN SCH ×2 (09:19→21:00)
[2019-05-21] MEDS: CEFEPIME 1,000 MG in DEXTROSE 5% WATER 50 ML IV SCH ×3 (10:11)
[2019-05-21 12:00] VITALS: BP 121/59
[2019-05-21 12:19] LABS: PLATELET ESTIMATE NORMAL
[2019-05-21] MEDS ORDERED: ACETAMINOPHEN 650MG SUPP PR PRN (14:45)
[2019-05-21] MEDS ORDERED: ACETAMINOPHEN 325MG TABLET PO PRN (14:45)
[2019-05-21] MEDS ORDERED: DIPHENHYDRAMINE 50MG/ML VIAL IV PRN (14:45)
[2019-05-21] MEDS ORDERED: LORAZEPAM 2MG/ML CPJ IV PRN (14:45)
[2019-05-21] MEDS ORDERED: HYDROCODONE/ACETAMINOPHEN 5/325MG TABLET PO PRN (14:45)
[2019-05-21] MEDS ORDERED: CLONIDINE 0.1MG TABLET PO PRN (14:45)
[2019-05-21] MEDS ORDERED: HYDRALAZINE 20MG/ML VIAL IV PRN (14:45)
[2019-05-21] MEDS ORDERED: DEXTROSE 50% WATER 50ML SYRINGE IV PRN (14:45)
[2019-05-21 15:05] LABS: BG BASE EXCESS 2.5 mmol/L (-2.0-2.0); BG CARBOXYHEMOGLOBIN 0.1 % (0.5-1.5); BG DEOXYHEMOGLOBIN 5.9 % (0.0-5.0); BG HCO3 ACT 26.1 mmol/L (22.0-26.0); BG METHEMOGLOBIN 0.1 % (0.0-1.5); BG OXYGEN SATURATION 94.1 % (92.0-98.5); BG OXYHEMOGLOBIN 93.9 % (94.0-97.0); BG PCO2 36.5 mmHg (35.0-45.0); BG PH 7.472 (7.350-7.450); BG PO2 69.5 mmHg (75.0-100.0); BG SAMPLE SITE RIGHT RADIAL; BG VENT MODE ROOM AIR
[2019-05-21] MEDS: SODIUM CHLORIDE 0.9% 1,000 ML IV SCH (15:36)
[2019-05-21 16:00] VITALS: BP 150/62
[2019-05-21] MEDS: BLOOD SUGAR DIAGNOSTIC STRIP TEST SCH ×2 (17:38→21:43)
[2019-05-21] MEDS: METRONIDAZOLE 500MG TABLET PO SCH ×2 (17:44→21:42)
[2019-05-21] MEDS: INSULIN LISPRO 100 UNITS/ML SUBCUT SCH ×2 (17:45→21:54)
[2019-05-21 19:24] LABS: CLARITY URINE CLEAR (CLEAR); COLOR URINE YELLOW (YELLOW); KETONES URINE TRACE (NEGATIVE); LEUKOCYTE ESTERASE URINE NEGATIVE (NEGATIVE); NITRITE URINE NEGATIVE (NEGATIVE); OCCULT BLOOD URINE NEGATIVE (NEGATIVE); PROTEIN URINE TRACE (NEGATIVE); SPECIFIC GRAVITY URINE 1.027 (1.005-1.030); UROBILINOGEN URINE 0.2 E.U./dL (0.2-1.0)
[2019-05-21 19:39] LABS: *AMPHETAMINES SCREEN URINE NEGATIVE (NEGATIVE)
[2019-05-21 19:41] LABS: *BARBITURATES SCREEN URINE NEGATIVE (NEGATIVE); *BENZODIAZEPINES SCREEN URINE NEGATIVE (NEGATIVE); *COCAINE SCREEN URINE NEGATIVE (NEGATIVE); CANNABINOID URINE SCREEN NEGATIVE (NEGATIVE); METHADONE URINE SCREEN NEGATIVE (NEGATIVE); OPIATES URINE SCREEN NEGATIVE (NEGATIVE); PHENCYCLIDINE URINE SCREEN NEGATIVE (NEGATIVE)
[2019-05-21 20:00] VITALS: BP 118/55
[2019-05-21] MEDS ORDERED: POLYVINYL ALCOHOL OPHTH DROPS 15ML BOTHEYE PRN (21:45)
[2019-05-22] VITALS: BP 120/54
[2019-05-22] MEDS: PIPERACILLIN/TAZOBACTAM 3.375 G in DEXT 5% WATER 100 ML IV SCH ×5 (00:09→23:53)
[2019-05-22 00:10] LABS: PROTHROMBIN TIME 9.9 sec (9.6-11.0)
[2019-05-22] MEDS: IPRATROPIUM/ALBUTEROL 0.5-3(2.5)MG/3ML NEB HHN SCH ×6 (00:30→20:30)
[2019-05-22] MEDS: METHYLPREDNISOLONE SOD SUCC 40 MG/ML VIAL IV SCH ×3 (02:56→21:45)
[2019-05-22 04:00] VITALS: BP 126/82
[2019-05-22 05:57] LABS: HEMATOCRIT. 29.3 % (42.0-52.0); HEMOGLOBIN. 9.8 g/dL (14.0-18.0); MEAN CORPUSCULAR VOLUME 83.8 fL (80.0-94.0); MEAN PLATELET VOLUME 8.1 fl (7.4-10.4); PLATELET 137 x1000/uL (130-400); RED BLOOD CELL COUNT 3.49 mill/uL (4.7-6.1); RED CELL DISTRIBUTION WIDTH 14.8 % (11.6-14.6)
[2019-05-22] MEDS: GABAPENTIN 100MG CAPSULE PO SCH ×3 (06:14→21:45)
[2019-05-22] MEDS: METRONIDAZOLE 500MG TABLET PO SCH ×3 (06:14→21:45)
[2019-05-22] MEDS: OMEPRAZOLE 20MG CAPSULE EXTENDED RELEASE PO SCH (06:14)
[2019-05-22] MEDS: INSULIN LISPRO 100 UNITS/ML SUBCUT SCH ×4 (06:23→20:55)
[2019-05-22] MEDS: BLOOD SUGAR DIAGNOSTIC STRIP TEST SCH ×4 (06:27→20:55)
[2019-05-22 08:00] VITALS: BP 152/50
[2019-05-22] MEDS: BUDESONIDE 0.5MG/2ML NEB HHN SCH ×3 (08:09→22:02)
[2019-05-22] MEDS: ENOXAPARIN 40MG/0.4ML SYR SUBCUT SCH ×2 (09:22→21:45)
[2019-05-22] MEDS: DILTIAZEM HCL 120MG CAPSULE CD 24HR PO SCH (09:23)
[2019-05-22] MEDS: SODIUM CHLORIDE 0.9% 1,000 ML IV SCH ×2 (11:00→17:06)
[2019-05-22] MEDS ORDERED: SODIUM CHLORIDE 0.9% 250 ML IV SCH (11:15)
[2019-05-22 12:38] VITALS: BP 133/60
[2019-05-22 16:03] LABS: PLATELET ESTIMATE NORMAL
[2019-05-22 17:47] VITALS: BP 133/54
[2019-05-22 20:00] VITALS: BP 152/69
[2019-05-22] MEDS ORDERED: MAGNESIUM/ALUMINUM HYDROXIDE/SIMETHICONE 30ML UDC PO PRN (21:30)
[2019-05-23] VITALS: BP 136/59
[2019-05-23] MEDS: IPRATROPIUM/ALBUTEROL 0.5-3(2.5)MG/3ML NEB HHN SCH ×5 (00:25→16:34)
[2019-05-23 04:00] VITALS: BP 145/51
[2019-05-23] MEDS: PIPERACILLIN/TAZOBACTAM 3.375 G in DEXT 5% WATER 100 ML IV SCH ×3 (05:48→17:12)
[2019-05-23 05:51] LABS: HEMATOCRIT. 31.4 % (42.0-52.0); HEMOGLOBIN. 10.4 g/dL (14.0-18.0); MEAN CORPUSCULAR VOLUME 84.6 fL (80.0-94.0); MEAN PLATELET VOLUME 8.5 fl (7.4-10.4); PLATELET 130 x1000/uL (130-400); RED BLOOD CELL COUNT 3.71 mill/uL (4.7-6.1)
[2019-05-23] MEDS: GABAPENTIN 100MG CAPSULE PO SCH ×2 (06:24→14:57)
[2019-05-23] MEDS: METRONIDAZOLE 500MG TABLET PO SCH ×2 (06:24→14:59)
[2019-05-23] MEDS: OMEPRAZOLE 20MG CAPSULE EXTENDED RELEASE PO SCH (06:24)
[2019-05-23] MEDS: INSULIN LISPRO 100 UNITS/ML SUBCUT SCH ×3 (06:31→17:30)
[2019-05-23] MEDS: BLOOD SUGAR DIAGNOSTIC STRIP TEST SCH ×3 (06:31→17:12)
[2019-05-23 06:43] LABS: CHLORIDE 98 mEq/L (98-107)
[2019-05-23] MEDS: SODIUM CHLORIDE 0.9% 1,000 ML IV SCH ×2 (07:05→17:05)
[2019-05-23 08:00] VITALS: BP 129/72
[2019-05-23] MEDS: DILTIAZEM HCL 120MG CAPSULE CD 24HR PO SCH (09:05)
[2019-05-23] MEDS: METHYLPREDNISOLONE SOD SUCC 40 MG/ML VIAL IV SCH (09:05)
[2019-05-23] MEDS: ENOXAPARIN 40MG/0.4ML SYR SUBCUT SCH (09:07)
[2019-05-23 12:00] VITALS: BP 126/45
[2019-05-23] MEDS: BUDESONIDE 0.5MG/2ML NEB HHN SCH (12:40)
[2019-05-23 13:42] LABS: PLATELET ESTIMATE NORMAL
[2019-05-23 16:00] VITALS: BP 148/50
[2019-05-23 17:37] VITALS: BP 148/50
== END 2019-05-23 18:50 | disposition home or self-care (01) | DRG 393 ==
LOC: ER 12:24 → 8WST 15:58 → ENRESERV 19:03
PROVIDERS: ADMIT Internal Medicine; ATTEND Internal Medicine
DX: K52.1 Toxic gastroenteritis and colitis (principal); J96.01 Acute respiratory failure with hypoxia; N17.9 Acute kidney failure, unspecified; J44.1 Chronic obstructive pulmonary disease with (acute) exacerbation; K56.7 Ileus, unspecified; E66.2 Morbid (severe) obesity with alveolar hypoventilation; E87.1 Hypo-osmolality and hyponatremia; Z68.43 Body mass index [BMI] 50.0-59.9, adult; T36.95XA Adverse effect of unspecified systemic antibiotic, initial encounter; I10 Essential (primary) hypertension; D64.9 Anemia, unspecified; E11.65 Type 2 diabetes mellitus with hyperglycemia; E86.0 Dehydration; R06.03 Acute respiratory distress; C61 Malignant neoplasm of prostate; Y92.89 Other specified places as the place of occurrence of the external cause; Z82.5 Family history of asthma and other chronic lower respiratory diseases; Z87.891 Personal history of nicotine dependence; Z90.49 Acquired absence of other specified parts of digestive tract; Z91.013 Allergy to seafood; I25.2 Old myocardial infarction; Z80.9 Family history of malignant neoplasm, unspecified
CPT/HCPCS: 36415; 36600; 71045; 74018; 74176; 80048; 80053; 80305; 81003; 82270; 82375; 82805; 82962; 83880; 84145; 84484; 85025; 87015; 87045; 87427; 87449; 89055; 93005; 94644; 96374; 99285; J0692; J1650; J1815; J2060; J2543; J2920; J2930; J7030; J7060; J7611; J7620; J7626

== ENCOUNTER 2019-08-12 12:29 | Emergency (ER) | payer MEDICARE, MEDICAID ==
[~2019-08-12] VITALS: Ht 172.7 cm; Wt 154.0 kg
[2019-08-12] MEDS ORDERED: KETOROLAC 60MG/2ML VIAL IM ONE (15:30)
[2019-08-12] MEDS ORDERED: HYDROCODONE/ACETAMINOPHEN 5/325MG TABLET PO ONE (15:30)
[2019-08-12 17:36] VITALS: BP 155/92
== END 2019-08-12 17:38 | disposition home or self-care (01) ==
LOC: ER 12:29
DX: R51 Headache (principal); J44.9 Chronic obstructive pulmonary disease, unspecified; E11.9 Type 2 diabetes mellitus without complications; I25.2 Old myocardial infarction; I11.0 Hypertensive heart disease with heart failure; I50.9 Heart failure, unspecified; E66.01 Morbid (severe) obesity due to excess calories; Z68.43 Body mass index [BMI] 50.0-59.9, adult; Z91.013 Allergy to seafood
CPT/HCPCS: 70486; 96372; 99284; J1885

== ENCOUNTER 2019-09-27 05:18 | Emergency (ER) | payer MEDICARE, MEDICAID ==
[~2019-09-27] VITALS: Ht 172.7 cm; Wt 143.0 kg
[2019-09-27] MEDS ORDERED: IPRATROPIUM BROMIDE (0.02%) 0.5MG/2.5ML NEB HHN STA (06:24)
[2019-09-27] MEDS ORDERED: METHYLPREDNISOLONE SOD SUCC 125 MG/2 ML VIAL IV STA (06:24)
[2019-09-27] MEDS ORDERED: ALBUTEROL (0.083%) 2.5MG/3ML NEB HHN STA (06:24)
[2019-09-27 06:38] LABS: BASOPHILS % 0.2 % (0.0-2.0); HEMATOCRIT. 30.7 % (42.0-52.0); MEAN CORPUSCULAR HEMOGLOBIN 27.7 pg (28.0-32.0); MEAN CORPUSCULAR VOLUME 84.8 fL (80.0-94.0); MONOCYTES % 3.7 % (2.0-8.0); NEUTROPHILS % 87.1 % (40.0-76.0); PLATELET 220 x1000/uL (130-400); RED BLOOD CELL COUNT 3.63 mill/uL (4.7-6.1); RED CELL DISTRIBUTION WIDTH 14.2 % (11.6-14.6)
[2019-09-27 06:42] LABS: CHLORIDE 100 mEq/L (98-107)
[2019-09-27] MEDS ORDERED: ALBUTEROL 6.7GM HFA INHALER ORI ONE (07:00)
[2019-09-27] MEDS ORDERED: SODIUM CHLORIDE 0.9% 1,000 ML IV ONE (08:00)
[2019-09-27 10:00] VITALS: BP 172/68
== END 2019-09-27 10:49 | disposition home or self-care (01) ==
LOC: ER 05:18 → CANBEDREQ 08:29 → ER 10:49
DX: J44.9 Chronic obstructive pulmonary disease, unspecified (principal); K92.2 Gastrointestinal hemorrhage, unspecified; D64.9 Anemia, unspecified; I10 Essential (primary) hypertension; E11.9 Type 2 diabetes mellitus without complications; Z87.19 Personal history of other diseases of the digestive system; Z98.890 Other specified postprocedural states; Z91.013 Allergy to seafood
CPT/HCPCS: 36415; 71045; 80053; 83880; 84484; 85025; 86850; 86900; 86901; 86920; 93005; 96374; 99285; J2930; J7030; 96375

== ENCOUNTER 2020-10-01 03:43 | Inpatient (IN) | payer MEDICARE, MEDICAID ==
[~2020-10-01] VITALS: Ht 177.8 cm; Wt 173.3 kg
[2020-10-01] MEDS ORDERED: ONDANSETRON HCL 4MG/2ML INJ IV STA (04:11)
[2020-10-01] MEDS ORDERED: MORPHINE SULFATE 4 MG/ML CPJ (NOT FOR IM USE) IV STA (04:11)
[2020-10-01] MEDS ORDERED: SODIUM CHLORIDE 0.9% 1,000 ML IV ONE (04:15)
[2020-10-01 05:09] LABS: BASOPHILS % 0.5 % (0.0-2.0); EOSINOPHILS % 1.3 % (0.0-5.0); HEMOGLOBIN. 11.2 g/dL (14.0-18.0); LYMPHOCYTES % 11.2 % (20.0-50.0); MEAN CORPUSCULAR VOLUME 84.4 fL (80.0-94.0); MEAN PLATELET VOLUME 7.5 fl (7.4-10.4); MONOCYTES % 6.3 % (2.0-8.0); NEUTROPHILS % 80.7 % (40.0-76.0); PLATELET 240 x1000/uL (130-400); RED BLOOD CELL COUNT 4.14 mill/uL (4.7-6.1); RED CELL DISTRIBUTION WIDTH 14.6 % (11.6-14.6)
[2020-10-01 05:09] LABS: CHLORIDE 99 mEq/L (98-107)
[2020-10-01] MEDS ORDERED: IBUPROFEN 600MG TABLET PO ONE (06:30)
[2020-10-01] MEDS ORDERED: IOHEXOL-300 100 ML BOTTLE ONE (07:17)
[2020-10-01] MEDS ORDERED: ONDANSETRON HCL 4MG/2ML INJ IV PRN (08:30)
[2020-10-01] MEDS ORDERED: ACETAMINOPHEN 325MG TABLET PO PRN (08:30)
[2020-10-01] MEDS: IPRATROPIUM/ALBUTEROL 0.5-3(2.5)MG/3ML NEB HHN PRN ×2 (09:56→16:24)
[2020-10-01 10:35] VITALS: BP 114/81
[2020-10-01] MEDS ORDERED: METF-414 MT (11:30)
[2020-10-01] MEDS ORDERED: LEVA15HF6 IH (11:34)
[2020-10-01 12:00] VITALS: BP 94/57
[2020-10-01] MEDS ORDERED: CEFTRIAXONE 1,000 MG in DEXTROSE 5% WATER 50 ML IV SCH (13:00)
[2020-10-01 13:56] VITALS: BP 94/57
[2020-10-01 14:39] LABS: CLARITY URINE CLEAR (CLEAR); COLOR URINE YELLOW (YELLOW); KETONES URINE NEGATIVE (NEGATIVE); LEUKOCYTE ESTERASE URINE NEGATIVE (NEGATIVE); NITRITE URINE NEGATIVE (NEGATIVE); OCCULT BLOOD URINE 1+ (NEGATIVE); PH URINE 5.5 (4.5-8.0); PROTEIN URINE NEGATIVE (NEGATIVE); UROBILINOGEN URINE 0.2 E.U./dL (0.2-1.0)
[2020-10-01 16:00] VITALS: BP 155/66
[2020-10-01 18:27] VITALS: BP 155/66
== END 2020-10-01 19:10 | disposition home or self-care (01) | DRG 155 ==
LOC: ER 03:57 → 5WST 05:49 → ENRESERV 08:05
PROVIDERS: ADMIT Internal Medicine Pulmonary Disease; ATTEND Internal Medicine Pulmonary Disease
DX: K11.5 Sialolithiasis (principal); E87.1 Hypo-osmolality and hyponatremia; Z68.43 Body mass index [BMI] 50.0-59.9, adult; M26.609 Unspecified temporomandibular joint disorder, unspecified side; K11.20 Sialoadenitis, unspecified; E66.01 Morbid (severe) obesity due to excess calories; E11.9 Type 2 diabetes mellitus without complications; J44.9 Chronic obstructive pulmonary disease, unspecified; G47.33 Obstructive sleep apnea (adult) (pediatric); I10 Essential (primary) hypertension; I16.0 Hypertensive urgency; Z71.3 Dietary counseling and surveillance; Z91.013 Allergy to seafood; Z82.5 Family history of asthma and other chronic lower respiratory diseases; K52.9 Noninfective gastroenteritis and colitis, unspecified
CPT/HCPCS: 36415; 70487; 71045; 80053; 81003; 84145; 84484; 85025; 93005; 94640; 99285; J0696; J7030; J7040; J7060; Q9967

== ENCOUNTER 2021-03-09 05:53 | Emergency (ER) | payer MEDICARE, MEDICAID ==
[~2021-03-09] VITALS: Ht 172.7 cm; Wt 172.0 kg
[~2021-03-09 05:53] MED LIST changes: -ASPI-1497 MT; -CHOL100046 PO; -DILT240C52 PO; -DILT240C96 MT; -DUONEB3 ML INH; +LEVA15HF6 IH; -LOSA100T32 MT; -MAX MT; +METF-414 MT; -METF-414 PO; -ROSU5TAB PO
[2021-03-09] MEDS ORDERED: PREDNISONE 20MG TABLET PO STA (06:39)
[2021-03-09] MEDS ORDERED: ALBUTEROL (0.083%) 2.5MG/3ML NEB HHN STA (06:39)
[2021-03-09] MEDS ORDERED: IPRATROPIUM BROMIDE (0.02%) 0.5MG/2.5ML NEB HHN STA (06:39)
[2021-03-09 07:13] LABS: BASOPHILS % 0.8 % (0.0-2.0); EOSINOPHILS % 4.7 % (0.0-5.0); HEMATOCRIT. 32.7 % (42.0-52.0); HEMOGLOBIN. 10.6 g/dL (14.0-18.0); LYMPHOCYTES % 17.9 % (20.0-50.0); MEAN CORPUSCULAR HEMOGLOBIN 27.4 pg (28.0-32.0); MEAN CORPUSCULAR VOLUME 84.1 fL (80.0-94.0); MEAN PLATELET VOLUME 8.7 fl (7.4-10.4); MONOCYTES % 6.3 % (2.0-8.0); NEUTROPHILS % 70.3 % (40.0-76.0); PLATELET 210 x1000/uL (130-400); RED BLOOD CELL COUNT 3.89 mill/uL (4.7-6.1); RED CELL DISTRIBUTION WIDTH 15.3 % (11.6-14.6)
[2021-03-09 07:26] LABS: CHLORIDE 104 mEq/L (98-107)
[2021-03-09] MEDS ORDERED: DOXY100C5 MT (11:23)
[2021-03-09] MEDS ORDERED: P50 MT (11:25)
[2021-03-09 12:20] VITALS: BP 134/51
== END 2021-03-09 12:50 | disposition home or self-care (01) ==
LOC: ER 05:53
DX: J44.1 Chronic obstructive pulmonary disease with (acute) exacerbation (principal); I11.0 Hypertensive heart disease with heart failure; I50.9 Heart failure, unspecified; E11.9 Type 2 diabetes mellitus without complications; Z91.013 Allergy to seafood; Z90.49 Acquired absence of other specified parts of digestive tract
CPT/HCPCS: 36415; 71045; 80048; 83880; 84484; 85025; 93005; 94644; 99285; J7512

== ENCOUNTER 2021-03-31 13:17 | Inpatient (IN) | payer MEDICARE, MEDICAID ==
[~2021-03-31] VITALS: Ht 175.3 cm; Wt 162.4 kg
[~2021-03-31 13:17] MED LIST changes: +DOXY100C5 MT; +P50 MT
[2021-03-31] MEDS ORDERED: ALBUTEROL (0.083%) 2.5MG/3ML NEB HHN STA (13:22)
[2021-03-31] MEDS ORDERED: IPRATROPIUM BROMIDE (0.02%) 0.5MG/2.5ML NEB HHN STA (13:22)
[2021-03-31] MEDS ORDERED: VANCOMYCIN 1 G PREMIX 200 ML IV ONE (13:30)
[2021-03-31] MEDS ORDERED: NITROGLYCERIN OINT 1GM/INCH UDPKT TD ONE (13:30)
[2021-03-31] MEDS ORDERED: PIPERACILLIN/TAZ 3.375G PREMIX 50 ML IV ONE (13:30)
[2021-03-31] MEDS: FUROSEMIDE 40MG/4ML VIAL IV ONE ×2 (13:30→13:42)
[2021-03-31] MEDS ORDERED: LIDOCAINE HCL/PF 1% 2ML VIAL ONE (13:55)
[2021-03-31 13:59] LABS: BASOPHILS % 0.7 % (0.0-2.0); EOSINOPHILS % 1.6 % (0.0-5.0); HEMATOCRIT. 37.2 % (42.0-52.0); HEMOGLOBIN. 11.7 g/dL (14.0-18.0); LYMPHOCYTES % 32.5 % (20.0-50.0); MEAN CORPUSCULAR HEMOGLOBIN 27.2 pg (28.0-32.0); MEAN CORPUSCULAR VOLUME 86.5 fL (80.0-94.0); MEAN PLATELET VOLUME 8.2 fl (7.4-10.4); MONOCYTES % 7.6 % (2.0-8.0); NEUTROPHILS % 57.6 % (40.0-76.0); PLATELET 221 x1000/uL (130-400); RED CELL DISTRIBUTION WIDTH 16.2 % (11.6-14.6)
[2021-03-31 14:02] LABS: CHLORIDE 100 mEq/L (98-107)
[2021-03-31 14:07] LABS: PROTHROMBIN TIME 10.3 sec (9.6-11.0)
[2021-03-31 14:09] LABS: C REACTIVE PROTEIN QUANT 2.2 mg/L (0.0-3.0); ETHANOL BLOOD < 10 mg/dL
[2021-03-31 14:47] LABS: BG BASE EXCESS 2.3 mmol/L (-2.0-2.0); BG CARBOXYHEMOGLOBIN 0.3 % (0.5-1.5); BG DEOXYHEMOGLOBIN 0.6 % (0.0-5.0); BG FRACTION INSPIRED OXYGEN 100; BG HCO3 ACT 26.8 mmol/L (22.0-26.0); BG OXYGEN SATURATION 99.4 % (92.0-98.5); BG OXYHEMOGLOBIN 99.1 % (94.0-97.0); BG PCO2 41.1 mmHg (35.0-45.0); BG PH 7.432 (7.350-7.450); BG PO2 501.9 mmHg (75.0-100.0); BG SAMPLE SITE LEFT RADIAL; BG TOTAL HEMOGLOBIN 12.4 g/dL (12.0-18.0); BG VENT MODE MASK - BIPAP
[2021-03-31] MEDS ORDERED: CLONIDINE 0.1MG TABLET PO PRN (18:30)
[2021-03-31] MEDS ORDERED: ONDANSETRON HCL 4MG/2ML INJ IV PRN (18:30)
[2021-03-31] MEDS ORDERED: ACETAMINOPHEN 325MG TABLET PO PRN (18:30)
[2021-03-31] MEDS ORDERED: DOCUSATE SODIUM 100MG CAPSULE PO PRN (18:30)
[2021-03-31] MEDS ORDERED: POTASSIUM CHLORIDE 20MEQ TABLET SR PO PRN (18:30)
[2021-03-31] MEDS ORDERED: GUAIFENESIN 200MG/10ML SUGAR FREE UDC PO PRN (18:30)
[2021-03-31] MEDS ORDERED: PIPERACILLIN/TAZOBACTAM 3.375GM/50ML PREMIX IV ONE (18:30)
[2021-03-31] MEDS ORDERED: MAGNESIUM/ALUMINUM HYDROXIDE/SIMETHICONE 30ML UDC PO PRN (18:30)
[2021-03-31] MEDS ORDERED: DEXTROSE 50% WATER 50ML SYRINGE IV PRN ×2 (18:45)
[2021-03-31 19:01] VITALS: BP 121/47
[2021-03-31 20:00] VITALS: BP 144/61
[2021-03-31] MEDS: IPRATROPIUM/ALBUTEROL 0.5-3(2.5)MG/3ML NEB HHN PRN (20:16)
[2021-03-31 20:30] VITALS: BP 144/61
[2021-03-31] MEDS: BLOOD SUGAR DIAGNOSTIC STRIP TEST SCH (20:57)
[2021-03-31] MEDS: INSULIN LISPRO 100 UNITS/ML SUBCUT SCH (20:58)
[2021-03-31] MEDS: CEFTRIAXONE 1,000 MG in DEXTROSE 5% WATER 50 ML IV SCH (21:40)
[2021-03-31 22:00] VITALS: BP 153/72
[2021-03-31] MEDS ORDERED: ENOXAPARIN 40MG/0.4ML SYR SUBCUT SCH (22:00)
[2021-03-31] MEDS ORDERED: PIPERACILLIN/TAZOBACTAM 3.375G in DEXT 5% WATER 50ML IV SCH (22:00)
[2021-03-31] MEDS ORDERED: LOSA50TA41 PO (23:57)
[2021-03-31] MEDS ORDERED: ASPI-1497 MT (23:57)
[2021-04-01] VITALS (12 sets, daily range): BP systolic 136–173; BP diastolic 39–81
[2021-04-01] MEDS: IPRATROPIUM/ALBUTEROL 0.5-3(2.5)MG/3ML NEB HHN PRN ×2 (00:30→04:47)
[2021-04-01] MEDS: BLOOD SUGAR DIAGNOSTIC STRIP TEST SCH ×4 (05:58→20:50)
[2021-04-01] MEDS: INSULIN LISPRO 100 UNITS/ML SUBCUT SCH ×4 (05:58→20:50)
[2021-04-01 07:11] LABS: BASOPHILS % 0.5 % (0.0-2.0); EOSINOPHILS % 2.3 % (0.0-5.0); HEMATOCRIT. 32.9 % (42.0-52.0); HEMOGLOBIN. 10.5 g/dL (14.0-18.0); LYMPHOCYTES % 11.2 % (20.0-50.0); MEAN CORPUSCULAR HEMOGLOBIN 27.3 pg (28.0-32.0); MEAN CORPUSCULAR VOLUME 85.4 fL (80.0-94.0); MONOCYTES % 8.2 % (2.0-8.0); NEUTROPHILS % 77.8 % (40.0-76.0); PLATELET 230 x1000/uL (130-400); RED BLOOD CELL COUNT 3.85 mill/uL (4.7-6.1); RED CELL DISTRIBUTION WIDTH 16.6 % (11.6-14.6)
[2021-04-01 07:49] LABS: PHOSPHORUS 3.8 mg/dL (2.5-4.9)
[2021-04-01 07:55] LABS: T4 FREE 1.2 ng/dL (0.76-1.46)
[2021-04-01] MEDS: PANTOPRAZOLE SODIUM 40 MG/VIAL IV SCH (07:58)
[2021-04-01] MEDS: PREDNISONE 5MG TABLET PO SCH (07:58)
[2021-04-01] MEDS ORDERED: FUROSEMIDE 40MG/4ML VIAL IV SCH (09:00)
[2021-04-01 10:46] LABS: BG BASE EXCESS 4.4 mmol/L (-2.0-2.0); BG CARBOXYHEMOGLOBIN 0.3 % (0.5-1.5); BG DEOXYHEMOGLOBIN 1.1 % (0.0-5.0); BG FRACTION INSPIRED OXYGEN 40; BG HCO3 ACT 28.9 mmol/L (22.0-26.0); BG METHEMOGLOBIN 0.3 % (0.0-1.5); BG OXYGEN SATURATION 98.9 % (92.0-98.5); BG OXYHEMOGLOBIN 98.3 % (94.0-97.0); BG PCO2 43.2 mmHg (35.0-45.0); BG PH 7.444 (7.350-7.450); BG PO2 203.9 mmHg (75.0-100.0); BG SAMPLE SITE RIGHT RADIAL; BG TOTAL HEMOGLOBIN 11.9 g/dL (12.0-18.0); BG VENT MODE MASK - BIPAP
[2021-04-01 10:50] LABS: CLARITY URINE CLEAR (CLEAR); COLOR URINE YELLOW (YELLOW); KETONES URINE NEGATIVE (NEGATIVE); LEUKOCYTE ESTERASE URINE NEGATIVE (NEGATIVE); NITRITE URINE NEGATIVE (NEGATIVE); OCCULT BLOOD URINE NEGATIVE (NEGATIVE); PH URINE 5.5 (4.5-8.0); PROTEIN URINE NEGATIVE (NEGATIVE); SPECIFIC GRAVITY URINE 1.028 (1.005-1.030); UROBILINOGEN URINE 0.2 E.U./dL (0.2-1.0)
[2021-04-01 11:02] LABS: *AMPHETAMINES SCREEN URINE NEGATIVE (NEGATIVE)
[2021-04-01 11:03] LABS: *BARBITURATES SCREEN URINE NEGATIVE (NEGATIVE); *BENZODIAZEPINES SCREEN URINE NEGATIVE (NEGATIVE); *COCAINE SCREEN URINE NEGATIVE (NEGATIVE); METHADONE URINE SCREEN NEGATIVE (NEGATIVE); OPIATES URINE SCREEN NEGATIVE (NEGATIVE); PHENCYCLIDINE URINE SCREEN NEGATIVE (NEGATIVE)
[2021-04-01 11:04] LABS: CANNABINOID URINE SCREEN NEGATIVE (NEGATIVE)
[2021-04-01] MEDS ORDERED: INFLUENZA VACCINE 05/PF 0.5 ML SYRINGE IM ONE (12:00)
[2021-04-01] MEDS: IPRATROPIUM/ALBUTEROL 0.5-3(2.5)MG/3ML NEB HHN SCH ×2 (15:53→20:55)
[2021-04-01] MEDS: ENOXAPARIN 40MG/0.4ML SYR SUBCUT SCH (17:41)
[2021-04-01] MEDS: CEFTRIAXONE 1,000 MG in DEXTROSE 5% WATER 50 ML IV SCH (21:09)
[2021-04-02] VITALS (12 sets, daily range): BP systolic 112–160; BP diastolic 36–80
[2021-04-02] MEDS: IPRATROPIUM/ALBUTEROL 0.5-3(2.5)MG/3ML NEB HHN SCH ×6 (01:40→20:23)
[2021-04-02] MEDS: ENOXAPARIN 40MG/0.4ML SYR SUBCUT SCH ×2 (05:46→16:35)
[2021-04-02] MEDS: BLOOD SUGAR DIAGNOSTIC STRIP TEST SCH ×4 (05:52→20:50)
[2021-04-02] MEDS: INSULIN LISPRO 100 UNITS/ML SUBCUT SCH ×4 (05:52→20:58)
[2021-04-02 07:09] LABS: BASOPHILS % 0.4 % (0.0-2.0); EOSINOPHILS % 3.6 % (0.0-5.0); HEMATOCRIT. 30.5 % (42.0-52.0); HEMOGLOBIN. 10.1 g/dL (14.0-18.0); LYMPHOCYTES % 18.3 % (20.0-50.0); MEAN CORPUSCULAR HEMOGLOBIN 28.4 pg (28.0-32.0); MEAN CORPUSCULAR VOLUME 85.4 fL (80.0-94.0); MEAN PLATELET VOLUME 8.2 fl (7.4-10.4); MONOCYTES % 9.4 % (2.0-8.0); NEUTROPHILS % 68.3 % (40.0-76.0); PLATELET 213 x1000/uL (130-400); RED BLOOD CELL COUNT 3.57 mill/uL (4.7-6.1); RED CELL DISTRIBUTION WIDTH 16.4 % (11.6-14.6)
[2021-04-02] MEDS: PANTOPRAZOLE SODIUM 40 MG/VIAL IV SCH (08:03)
[2021-04-02] MEDS: PREDNISONE 5MG TABLET PO SCH (08:03)
[2021-04-02] MEDS: CEFTRIAXONE 1,000 MG in DEXTROSE 5% WATER 50 ML IV SCH (20:51)
[2021-04-03] VITALS (10 sets, daily range): BP systolic 112–145; BP diastolic 38–68
[2021-04-03] MEDS: IPRATROPIUM/ALBUTEROL 0.5-3(2.5)MG/3ML NEB HHN SCH ×5 (00:59→16:30)
[2021-04-03] MEDS: BLOOD SUGAR DIAGNOSTIC STRIP TEST SCH ×2 (05:54→11:50)
[2021-04-03] MEDS: ENOXAPARIN 40MG/0.4ML SYR SUBCUT SCH (06:04)
[2021-04-03] MEDS: INSULIN LISPRO 100 UNITS/ML SUBCUT SCH ×2 (06:23→12:20)
[2021-04-03 07:02] LABS: CHLORIDE 100 mEq/L (98-107)
[2021-04-03 07:14] LABS: BASOPHILS % 0.2 % (0.0-2.0); HEMATOCRIT. 29.4 % (42.0-52.0); HEMOGLOBIN. 9.8 g/dL (14.0-18.0); LYMPHOCYTES % 16.7 % (20.0-50.0); MEAN CORPUSCULAR HEMOGLOBIN 28.5 pg (28.0-32.0); MEAN CORPUSCULAR VOLUME 85.9 fL (80.0-94.0); MEAN PLATELET VOLUME 8.1 fl (7.4-10.4); MONOCYTES % 10.1 % (2.0-8.0); PLATELET 196 x1000/uL (130-400); RED BLOOD CELL COUNT 3.42 mill/uL (4.7-6.1); RED CELL DISTRIBUTION WIDTH 16.7 % (11.6-14.6)
[2021-04-03] MEDS: PREDNISONE 5MG TABLET PO SCH (08:58)
[2021-04-03] MEDS ORDERED: FAMOTIDINE 20MG/2ML VIAL IV SCH (09:00)
[2021-04-03] MEDS ORDERED: DEXTL PO (13:23)
== END 2021-04-03 17:00 | disposition home health service (06) | DRG 190 ==
LOC: ER 13:17 → 3WST 15:48 → EDBEDREQ 15:56 → ENRESERV 18:34
PROVIDERS: ADMIT Internal Medicine Pulmonary Disease; ATTEND Internal Medicine Pulmonary Disease
PROC: 5A09357 Assistance with Respiratory Ventilation, Less than 24 Consecutive Hours, Continuous Positive Airway Pressure (ICD-10-PCS; principal; 2021-03-31)
PROC: 5A09357 Assistance with Respiratory Ventilation, Less than 24 Consecutive Hours, Continuous Positive Airway Pressure (ICD-10-PCS; 2021-04-01)
PROC: 5A09357 Assistance with Respiratory Ventilation, Less than 24 Consecutive Hours, Continuous Positive Airway Pressure (ICD-10-PCS; 2021-04-02)
PROC: 5A09357 Assistance with Respiratory Ventilation, Less than 24 Consecutive Hours, Continuous Positive Airway Pressure (ICD-10-PCS; 2021-04-03)
DX: J44.1 Chronic obstructive pulmonary disease with (acute) exacerbation (principal); J96.91 Respiratory failure, unspecified with hypoxia; N17.0 Acute kidney failure with tubular necrosis; E66.2 Morbid (severe) obesity with alveolar hypoventilation; Z68.43 Body mass index [BMI] 50.0-59.9, adult; I13.0 Hypertensive heart and chronic kidney disease with heart failure and stage 1 through stage 4 chronic kidney disease, or unspecified chronic kidney disease; D64.9 Anemia, unspecified; D72.829 Elevated white blood cell count, unspecified; E11.22 Type 2 diabetes mellitus with diabetic chronic kidney disease; E78.5 Hyperlipidemia, unspecified; N18.9 Chronic kidney disease, unspecified; I50.9 Heart failure, unspecified; N50.89 Other specified disorders of the male genital organs; I07.1 Rheumatic tricuspid insufficiency; Z60.2 Problems related to living alone; Z20.822 Contact with and (suspected) exposure to COVID-19; Z82.5 Family history of asthma and other chronic lower respiratory diseases; Z90.49 Acquired absence of other specified parts of digestive tract; Z85.46 Personal history of malignant neoplasm of prostate; Z91.013 Allergy to seafood; Z79.82 Long term (current) use of aspirin; Z79.84 Long term (current) use of oral hypoglycemic drugs; Z79.899 Other long term (current) drug therapy; Z80.9 Family history of malignant neoplasm, unspecified; Z71.3 Dietary counseling and surveillance
CPT/HCPCS: 36415; 36600; 71045; 76770; 80048; 80053; 80061; 80076; 80305; 80320; 81003; 82375; 82728; 82805; 82962; 83036; 83605; 83735; 83880; 84100; 84145; 84439; 84484; 85025; 86140; 86850; 86900; 87426; 93005; 93306; 93970; 94640; 94660; 97162; 97166; 99291; C9113; J0696; J1650; J1940; J2543; J3370; J3490; J7060; J7512; G0480

== ENCOUNTER 2021-07-06 17:42 | Inpatient (IN) | payer MEDICARE, MEDICAID ==
[~2021-07-06] VITALS: Ht 174 cm; Wt 167.4 kg
[~2021-07-06 17:42] MED LIST changes: +ASPI-1497 MT; +DEXTL PO; -DOXY100C5 MT; +LOSA50TA41 PO
[2021-07-06] MEDS ORDERED: ALBUTEROL (0.083%) 2.5MG/3ML NEB HHN STA (18:14)
[2021-07-06 20:14] LABS: BASOPHILS % 0.3 % (0.0-2.0); EOSINOPHILS % 0.5 % (0.0-5.0); HEMATOCRIT. 32.7 % (42.0-52.0); HEMOGLOBIN. 10.7 g/dL (14.0-18.0); LYMPHOCYTES % 12.2 % (20.0-50.0); MEAN CORPUSCULAR HEMOGLOBIN 27.3 pg (28.0-32.0); MEAN CORPUSCULAR VOLUME 83.5 fL (80.0-94.0); MEAN PLATELET VOLUME 7.8 fl (7.4-10.4); MONOCYTES % 4.5 % (2.0-8.0); NEUTROPHILS % 82.5 % (40.0-76.0); PLATELET 261 x1000/uL (130-400); RED BLOOD CELL COUNT 3.92 mill/uL (4.7-6.1); RED CELL DISTRIBUTION WIDTH 14.2 % (11.6-14.6)
[2021-07-06 20:20] LABS: CHLORIDE 100 mEq/L (98-107)
[2021-07-06] MEDS ORDERED: ALBUTEROL (0.5%) 2.5MG/0.5ML NEB HHN ONE (22:15)
[2021-07-06] MEDS ORDERED: ALBUTEROL (0.083%) 2.5MG/3ML NEB ONE (22:51)
[2021-07-07 09:30] VITALS: BP 134/74
[2021-07-07 10:00] VITALS: BP 134/74
[2021-07-07] MEDS ORDERED: ONDANSETRON HCL 4MG/2ML INJ IV PRN (11:30)
[2021-07-07] MEDS ORDERED: GABA-532 MT (11:37)
[2021-07-07] MEDS ORDERED: OMEP40CA20 PO (11:37)
[2021-07-07] MEDS ORDERED: TRIA1TAB92 PO (11:37)
[2021-07-07] MEDS ORDERED: BICA50TA7 PO (11:37)
[2021-07-07] MEDS ORDERED: FURO-151 PO (11:37)
[2021-07-07] MEDS ORDERED: DILT240C96 PO (11:37)
[2021-07-07 12:00] VITALS: BP 149/85
[2021-07-07] MEDS ORDERED: *PATIENT'S OWN MEDICATION STORAGE XX SCH (12:00)
[2021-07-07] MEDS: METHYLPREDNISOLONE SOD SUCC 40 MG/ML VIAL IV SCH ×2 (13:54→21:31)
[2021-07-07] MEDS: ACETAMINOPHEN 325MG TABLET PO PRN (15:55)
[2021-07-07 16:00] VITALS: BP 137/106
[2021-07-07] MEDS: IPRATROPIUM/ALBUTEROL 0.5-3(2.5)MG/3ML NEB HHN SCH ×2 (17:39→20:56)
[2021-07-07 20:00] VITALS: BP 163/84
[2021-07-07] MEDS: ASPIRIN 81MG TABLET PO SCH (21:29)
[2021-07-07] MEDS: LOSARTAN POTASSIUM 50 MG TABLET PO SCH (21:31)
[2021-07-07] MEDS: FAMOTIDINE 20MG TABLET PO SCH (21:31)
[2021-07-07] MEDS: DILTIAZEM HCL 120MG CAPSULE CD 24HR PO SCH (21:31)
[2021-07-08] VITALS: BP 163/84
[2021-07-08] MEDS: IPRATROPIUM/ALBUTEROL 0.5-3(2.5)MG/3ML NEB HHN SCH ×5 (00:36→21:11)
[2021-07-08 04:00] VITALS: BP 147/70
[2021-07-08] MEDS: METHYLPREDNISOLONE SOD SUCC 40 MG/ML VIAL IV SCH ×3 (06:16→21:13)
[2021-07-08 08:39] VITALS: BP 179/90
[2021-07-08] MEDS: LOSARTAN POTASSIUM 50 MG TABLET PO SCH (08:43)
[2021-07-08] MEDS: ASPIRIN 81MG TABLET PO SCH (08:43)
[2021-07-08] MEDS: DILTIAZEM HCL 120MG CAPSULE CD 24HR PO SCH (08:43)
[2021-07-08] MEDS: ACETAMINOPHEN 325MG TABLET PO PRN (14:15)
[2021-07-08 14:22] VITALS: BP 155/76
[2021-07-08 16:35] VITALS: BP 156/60
[2021-07-08] MEDS: BICALUTAMIDE 50 MG TABLET PO SCH (18:12)
[2021-07-08 20:00] VITALS: BP 134/60
[2021-07-08] MEDS: FAMOTIDINE 20MG TABLET PO SCH (21:12)
[2021-07-08] MEDS: GUAIFENESIN 600MG ER TABLET PO SCH (21:13)
[2021-07-09] VITALS: BP 104/61
[2021-07-09 04:00] VITALS: BP 146/52
[2021-07-09] MEDS: IPRATROPIUM/ALBUTEROL 0.5-3(2.5)MG/3ML NEB HHN SCH ×6 (04:55→21:12)
[2021-07-09] MEDS: METHYLPREDNISOLONE SOD SUCC 40 MG/ML VIAL IV SCH ×3 (06:12→21:24)
[2021-07-09 08:00] VITALS: BP 160/70
[2021-07-09] MEDS: DILTIAZEM HCL 120MG CAPSULE CD 24HR PO SCH (08:59)
[2021-07-09] MEDS: ASPIRIN 81MG TABLET PO SCH (08:59)
[2021-07-09] MEDS: GUAIFENESIN 600MG ER TABLET PO SCH ×2 (08:59→21:24)
[2021-07-09] MEDS: BICALUTAMIDE 50 MG TABLET PO SCH (09:00)
[2021-07-09] MEDS: LOSARTAN POTASSIUM 50 MG TABLET PO SCH (09:00)
[2021-07-09 12:00] VITALS: BP 147/73
[2021-07-09] MEDS ORDERED: FUROSEMIDE 40MG/4ML VIAL IVP NR (12:30)
[2021-07-09 15:50] VITALS: BP 145/73
[2021-07-09] MEDS: POLYVINYL ALCOHOL OPHTH DROPS 15ML BOTHEYE SCH (17:20)
[2021-07-09 20:00] VITALS: BP 157/71
[2021-07-09] MEDS: FAMOTIDINE 20MG TABLET PO SCH (21:24)
[2021-07-10] VITALS: BP 155/63
[2021-07-10] MEDS: IPRATROPIUM/ALBUTEROL 0.5-3(2.5)MG/3ML NEB HHN SCH ×6 (01:00→20:44)
[2021-07-10 04:00] VITALS: BP 154/76
[2021-07-10] MEDS: POLYVINYL ALCOHOL OPHTH DROPS 15ML BOTHEYE SCH ×5 (06:08→23:11)
[2021-07-10] MEDS: METHYLPREDNISOLONE SOD SUCC 40 MG/ML VIAL IV SCH ×3 (06:08→21:10)
[2021-07-10 08:00] VITALS: BP 137/65
[2021-07-10] MEDS: ASPIRIN 81MG TABLET PO SCH (09:07)
[2021-07-10] MEDS: GUAIFENESIN 600MG ER TABLET PO SCH ×2 (09:07→21:11)
[2021-07-10] MEDS: DILTIAZEM HCL 120MG CAPSULE CD 24HR PO SCH (09:07)
[2021-07-10] MEDS: LOSARTAN POTASSIUM 50 MG TABLET PO SCH (09:08)
[2021-07-10] MEDS: BICALUTAMIDE 50 MG TABLET PO SCH (09:08)
[2021-07-10 12:00] VITALS: BP 151/61
[2021-07-10] MEDS ORDERED: FUROSEMIDE 40MG/4ML VIAL IVP NR (14:15)
[2021-07-10 16:00] VITALS: BP 144/45
[2021-07-10] MEDS ORDERED: P50 MT (19:13)
[2021-07-10 20:00] VITALS: BP 135/67
[2021-07-10] MEDS: FAMOTIDINE 20MG TABLET PO SCH (21:11)
[2021-07-10 21:24] LABS: HEMATOCRIT. 33.5 % (42.0-52.0); HEMOGLOBIN. 10.6 g/dL (14.0-18.0); MEAN CORPUSCULAR HEMOGLOBIN 26.5 pg (28.0-32.0); MEAN CORPUSCULAR VOLUME 83.5 fL (80.0-94.0); PLATELET 268 x1000/uL (130-400); RED BLOOD CELL COUNT 4.01 mill/uL (4.7-6.1); RED CELL DISTRIBUTION WIDTH 14.1 % (11.6-14.6)
[2021-07-10 21:47] LABS: PLATELET ESTIMATE NORMAL
[2021-07-11] VITALS: BP 158/73
[2021-07-11] MEDS: IPRATROPIUM/ALBUTEROL 0.5-3(2.5)MG/3ML NEB HHN SCH ×4 (00:59→12:10)
[2021-07-11 04:00] VITALS: BP 139/75
[2021-07-11] MEDS: POLYVINYL ALCOHOL OPHTH DROPS 15ML BOTHEYE SCH ×2 (05:45→13:39)
[2021-07-11] MEDS: METHYLPREDNISOLONE SOD SUCC 40 MG/ML VIAL IV SCH ×2 (05:45→13:27)
[2021-07-11 08:00] VITALS: BP 132/78
[2021-07-11] MEDS: GUAIFENESIN 600MG ER TABLET PO SCH (08:51)
[2021-07-11] MEDS: BICALUTAMIDE 50 MG TABLET PO SCH (08:52)
[2021-07-11] MEDS: ASPIRIN 81MG TABLET PO SCH (08:52)
[2021-07-11] MEDS: DILTIAZEM HCL 120MG CAPSULE CD 24HR PO SCH (08:52)
[2021-07-11] MEDS: LOSARTAN POTASSIUM 50 MG TABLET PO SCH (08:52)
[2021-07-11 12:00] VITALS: BP 154/68
[2021-07-11] MEDS ORDERED: TUSSL MT (12:11)
[2021-07-11] MEDS ORDERED: GUAI600T26 MT (12:11)
== END 2021-07-11 16:32 | disposition home or self-care (01) | DRG 190 ==
LOC: ER 17:42 → MICUSO 22:07 → 6WST 07-07 07:25
PROVIDERS: ADMIT Internal Medicine Pulmonary Disease; ATTEND Internal Medicine Pulmonary Disease
PROC: 5A09457 Assistance with Respiratory Ventilation, 24-96 Consecutive Hours, Continuous Positive Airway Pressure (ICD-10-PCS; principal; 2021-07-07)
PROC: 5A09457 Assistance with Respiratory Ventilation, 24-96 Consecutive Hours, Continuous Positive Airway Pressure (ICD-10-PCS; 2021-07-10)
DX: J44.1 Chronic obstructive pulmonary disease with (acute) exacerbation (principal); N17.0 Acute kidney failure with tubular necrosis; J96.22 Acute and chronic respiratory failure with hypercapnia; Z68.43 Body mass index [BMI] 50.0-59.9, adult; E44.0 Moderate protein-calorie malnutrition; I13.0 Hypertensive heart and chronic kidney disease with heart failure and stage 1 through stage 4 chronic kidney disease, or unspecified chronic kidney disease; G47.33 Obstructive sleep apnea (adult) (pediatric); D64.9 Anemia, unspecified; E66.01 Morbid (severe) obesity due to excess calories; I50.9 Heart failure, unspecified; N18.9 Chronic kidney disease, unspecified; E11.22 Type 2 diabetes mellitus with diabetic chronic kidney disease; Z91.013 Allergy to seafood; Z79.899 Other long term (current) drug therapy; Z79.82 Long term (current) use of aspirin; Z90.49 Acquired absence of other specified parts of digestive tract; Z82.5 Family history of asthma and other chronic lower respiratory diseases; Z71.3 Dietary counseling and surveillance
CPT/HCPCS: 36415; 71045; 80048; 80053; 83880; 84484; 85025; 93005; 94640; 94660; 99285; J1940; J2920

== ENCOUNTER 2021-07-26 18:08 | Emergency (ER) | payer MEDICARE, MEDICAID ==
[~2021-07-26] VITALS: Ht 170.2 cm; Wt 165.0 kg
[~2021-07-26 18:08] MED LIST changes: +BICA50TA7 PO; +DILT240C96 PO; +FURO-151 PO; +GABA-532 MT; +GUAI600T26 MT; +OMEP40CA20 PO; +TRIA1TAB92 PO; +TUSSL MT
[2021-07-26 20:03] LABS: HEMOGLOBIN. 11.2 g/dL (14.0-18.0); MEAN CORPUSCULAR VOLUME 84.2 fL (80.0-94.0); MEAN PLATELET VOLUME 7.9 fl (7.4-10.4); PLATELET 176 x1000/uL (130-400); RED BLOOD CELL COUNT 4.15 mill/uL (4.7-6.1); RED CELL DISTRIBUTION WIDTH 14.8 % (11.6-14.6)
[2021-07-26 20:16] LABS: CHLORIDE 101 mEq/L (98-107)
[2021-07-26] MEDS ORDERED: METHYLPREDNISOLONE SOD SUCC 125 MG/2 ML VIAL IV NR (20:20)
[2021-07-26] MEDS ORDERED: ALBUTEROL (0.083%) 2.5MG/3ML NEB HHN NR (20:20)
[2021-07-26] MEDS ORDERED: IPRATROPIUM BROMIDE (0.02%) 0.5MG/2.5ML NEB HHN NR (20:20)
[2021-07-26 21:48] LABS: PLATELET ESTIMATE NORMAL
[2021-07-26] MEDS ORDERED: IPRATROPIUM BROMIDE (0.02%) 0.5MG/2.5ML NEB HHN STA (22:49)
[2021-07-26] MEDS ORDERED: ALBUTEROL (0.083%) 2.5MG/3ML NEB HHN STA (22:49)
[2021-07-26] MEDS ORDERED: P50 MT ×2 (23:54)
[2021-07-26 23:57] VITALS: BP 151/83
[2021-07-27] MEDS ORDERED: P50 MT (00:17)
== END 2021-07-27 00:30 | disposition home or self-care (01) ==
LOC: ER 18:08
DX: J44.9 Chronic obstructive pulmonary disease, unspecified (principal); E11.9 Type 2 diabetes mellitus without complications; I10 Essential (primary) hypertension; Z20.822 Contact with and (suspected) exposure to COVID-19; Z79.82 Long term (current) use of aspirin; Z91.013 Allergy to seafood; Z98.890 Other specified postprocedural states
CPT/HCPCS: 36415; 71045; 80053; 83880; 84484; 85025; 87426; 93005; 94640; 96374; 99285; J2930

== ENCOUNTER 2021-07-27 02:17 | Emergency (ER) | payer MEDICARE, MEDICAID ==
[~2021-07-27] VITALS: Ht 172.7 cm; Wt 160.0 kg
[2021-07-27] MEDS ORDERED: IPRATROPIUM BROMIDE (0.02%) 0.5MG/2.5ML NEB HHN STA (02:44)
[2021-07-27] MEDS ORDERED: ALBUTEROL (0.083%) 2.5MG/3ML NEB HHN SCH (03:00)
[2021-07-27 05:34] VITALS: BP 168/79
== END 2021-07-27 05:58 | disposition home or self-care (01) ==
LOC: ER 02:17
DX: J44.1 Chronic obstructive pulmonary disease with (acute) exacerbation (principal); E11.9 Type 2 diabetes mellitus without complications; N40.0 Benign prostatic hyperplasia without lower urinary tract symptoms; Z85.9 Personal history of malignant neoplasm, unspecified; Z79.82 Long term (current) use of aspirin; Z98.890 Other specified postprocedural states; Z91.013 Allergy to seafood
CPT/HCPCS: 93005; 94640; 99283